=== PATIENT | female | born 1940 | race Caucasian/White ===

== ENCOUNTER 2020-05-08 13:14 | Outpatient (REF) | payer MEDICARE, SELFPAY ==
--- NOTE | 2020-05-08 13:20 | MM_ITS ---
EXAMINATION: MM SCREENING DIGITAL BREAST TOMOSYNTHESIS, BILATERAL CLINICAL INFORMATION: Screening. Asymptomatic. The lifetime risk of breast cancer based on the Tyrer-Cuzick Model is 1%. COMPARISON: Mammography: 11/23/2018, 10/03/2017, 08/13/2016 TECHNIQUE: Digital breast tomosynthesis is performed in both the craniocaudal and mediolateral oblique views along with computer-aided detection (CAD). Synthesized 2D images are generated from the tomosynthesis. Additional left CC and left MLO views are provided. FINDINGS: The breasts are heterogeneously dense, which may obscure small masses (ACR BI-RADS breast composition Category c). There are scattered bilateral nodular parenchymal asymmetries similar to prior studies. There are shifting fibroglandular densities from year to year consistent with variation in positioning and compression. No significant changes. No interval significant mass or architectural abnormality or abnormal calcifications. Again, there are vascular calcifications as well as benign bulky calcification upper outer right breast. MM/MM tomosynthesis screening BI IMPRESSION: No significant changes from prior studies. ASSESSMENT: BI-RADS 2: Benign RECOMMENDATION: Routine annual mammography screening. This patient's information was entered into a reminder system with a target due date for their next mammogram.
== END 2020-05-08 13:15 | disposition home or self-care (01) ==
LOC: HO.MAMMO 13:14
PROVIDERS: Visit Provider Internal Medicine
DX: Z12.31 Encounter for screening mammogram for malignant neoplasm of breast (principal)
CPT/HCPCS: 77063; 77067

== ENCOUNTER 2020-05-15 07:22 | Outpatient (REF) | payer MEDICARE, SELFPAY ==
[2020-05-15 11:16] LABS: MANUAL DIFF FLAG NO
[2020-05-15 11:23] LABS: Basophils Percent Auto 0.3 % (0-2); Eosinophils Absolute Auto 0.4 X10*3/uL (0.0-0.4); Eosinophils Percent Auto 3.3 % (0-4); Hematocrit 45.5 % (37-47); Hemoglobin 14.6 g/dl (12.0-16.0); Imm Gran Abs Auto 0.05 X10*3/uL (0.00-0.03); Imm Gran Pct Auto 0.4 % (0.0-0.4); Lymphocytes Absolute Auto 3.8 X10*3/uL (1.2-4.9); Lymphocytes Percent Auto 33.9 % (20-40); Mean Corpuscular HGB Conc 32.1 g/dl (31.0-35.0); Mean Corpuscular Hemoglobin 28.9 pg (27.0-33.0); Mean Corpuscular Volume 89.9 fL (80-98); Mean Platelet Volume 9.5 fL (9.4-12.3); Monocytes Absolute Auto 0.8 X10*3/uL (0.1-1.2); Monocytes Percent Auto 6.8 % (2-11); Neutrophils Absolute Auto 6.2 X10*3/uL (2.0-8.3); Neutrophils Percent Auto 55.3 % (45-73); Platelet Count 273 X10*3/uL (160-400); Red Blood Count 5.06 X10*6/uL (4.20-5.50); Red Cell Distribution Width 13.7 % (11.0-16.0); White Blood Count 11.3 X10*3/uL (4.8-10.8)
[2020-05-15 11:55] LABS: Alanine Aminotransferase 32 U/L (0-31); Alkaline Phosphatase 81 U/L (39-117); Anion Gap 18 (12-20); Aspartate Amino Transferase 26 U/L (5-31); Bilirubin Total 1.7 mg/dL (0.0-1.0); Blood Urea Nitrogen 14 mg/dL (9-16); Calcium 8.6 mg/dL (8.4-10.2); Carbon Dioxide 27 mmol/L (22-29); Chloride 103 mmol/L (96-108); Cholesterol 151 mg/dL; Estimated Glomerular Filt Rate > 60; Glucose Fasting 117 mg/dL (60-99); HDL Cholesterol 38 mg/dL; LDL Cholesterol Calculated 74 mg/dl; Potassium 3.7 mmol/l (3.3-5.1); Sodium 144 mmol/L (135-145); Total Protein 6.6 g/dL (6.5-8.0); Triglycerides 196 mg/dL
[2020-05-15 12:17] LABS: T4 Thyroxine 7.8 ug/dL (4.5-12.0); Thyroid Stimulating Hormone 2.68 uIU/mL (0.32-4.0); Vitamin D 25-OH Total 32.1 ng/mL (>30)
[2020-05-15 12:30] LABS: Creatinine Urine 219.96 mg/dL; Microalbum/Creatinine Ratio Ur 27.2 ug/mg cr
[2020-05-15 12:58] LABS: Folate > 20.0 ng/mL (> or = 4.0); Vitamin B12 618 pg/mL (200-900)
== END 2020-05-15 07:23 | disposition home or self-care (01) ==
LOC: HO.HMGCLDS 07:22
PROVIDERS: PCP Internal Medicine; Visit Provider Internal Medicine
DX: E11.65 Type 2 diabetes mellitus with hyperglycemia (principal); I10 Essential (primary) hypertension; E78.00 Pure hypercholesterolemia, unspecified; E66.01 Morbid (severe) obesity due to excess calories
CPT/HCPCS: 36415; 80053; 80061; 82043; 82306; 82607; 82746; 84436; 84443; 85025

== ENCOUNTER 2021-05-27 06:27 | Outpatient (REF) | payer MEDICARE, SELFPAY ==
[2021-05-27 11:14] LABS: MANUAL DIFF FLAG NO
[2021-05-27 11:28] LABS: Basophils Percent Auto 0.3 % (0-2); Eosinophils Absolute Auto 0.4 X10*3/uL (0.0-0.4); Eosinophils Percent Auto 3.4 % (0-4); Hematocrit 44.2 % (37.0-47.0); Hemoglobin 14.3 g/dl (12.0-16.0); Imm Gran Abs Auto 0.04 X10*3/uL (0.00-0.03); Imm Gran Pct Auto 0.3 % (0.0-0.4); Lymphocytes Absolute Auto 2.8 X10*3/uL (1.2-4.9); Lymphocytes Percent Auto 24.2 % (20-40); Mean Corpuscular HGB Conc 32.4 g/dl (31.0-35.0); Mean Corpuscular Hemoglobin 29.3 pg (27.0-33.0); Mean Corpuscular Volume 90.6 fL (80.0-98.0); Mean Platelet Volume 9.7 fL (9.4-12.3); Monocytes Absolute Auto 0.8 X10*3/uL (0.1-1.2); Monocytes Percent Auto 6.7 % (2-11); Neutrophils Absolute Auto 7.6 x10*3/uL (2.0-8.3); Neutrophils Percent Auto 65.1 % (45-73); Platelet Count 260 X10*3/uL (160-400); Red Blood Count 4.88 X10*6/uL (4.20-5.50); Red Cell Distribution Width 14.2 % (11.0-16.0); White Blood Count 11.6 X10*3/uL (4.8-10.8)
[2021-05-27 12:32] LABS: Creatinine Urine 227.06 mg/dL; Microalbum/Creatinine Ratio Ur 9.2 ug/mg cr
[2021-05-27 12:53] LABS: Free T4 (Free Thyroxine) 0.85 ng/dL (0.71-1.85); Thyroid Stimulating Hormone 2.85 uIU/mL (0.32-4.0); Vitamin D 25-OH Total 31.8 ng/mL (>30)
[2021-05-27 13:03] LABS: Alanine Aminotransferase 35 U/L (0-31); Alkaline Phosphatase 75 U/L (39-117); Anion Gap 13 (12-20); Aspartate Amino Transferase 31 U/L (5-31); Bilirubin Total 2.1 mg/dL (0.0-1.0); Carbon Dioxide 29 mmol/L (22-29); Chloride 104 mmol/L (96-108); Cholesterol 149 mg/dL; Estimated Glomerular Filt Rate > 60; Glucose Random 144 mg/dL (60-115); HDL Cholesterol 34 mg/dL; LDL Cholesterol Calculated 88 mg/dl; Potassium 4.2 mmol/L (3.3-5.1); Sodium 142 mmol/L (135-145); Total Protein 6.8 g/dL (6.5-8.0); Triglycerides 139 mg/dL
[2021-05-27 15:32] LABS: Blood Urea Nitrogen 21 mg/dL (9-16); Calcium 9.6 mg/dL (8.4-10.2)
[2021-05-27 15:36] LABS: Estimated Average Glucose 154 mg/dL
[2021-05-27 23:11] LABS: Folate 18.6 ng/mL (> or = 4.0); Vitamin B12 623 pg/mL (200-900)
== END 2021-05-27 06:28 | disposition home or self-care (01) ==
LOC: HO.HMGCLDS 06:27
PROVIDERS: Visit Provider Internal Medicine
DX: E11.65 Type 2 diabetes mellitus with hyperglycemia (principal); E78.00 Pure hypercholesterolemia, unspecified; I10 Essential (primary) hypertension
CPT/HCPCS: 36415; 80053; 80061; 82043; 82306; 82607; 82746; 83036; 84439; 84443; 85025

== ENCOUNTER 2021-12-28 07:06 | Outpatient (REF) | payer MEDICARE, SELFPAY ==
[2021-12-28 11:56] LABS: Alanine Aminotransferase 33 U/L (0-31); Albumin Level 4.1 g/dL (3.5-5.0); Alkaline Phosphatase 67 U/L (39-117); Anion Gap 16 (12-20); Aspartate Amino Transferase 23 U/L (5-31); Bilirubin Total 1.7 mg/dL (0.0-1.0); Blood Urea Nitrogen 18 mg/dL (9-16); Carbon Dioxide 28 mmol/L (22-29); Chloride 104 mmol/L (96-108); Cholesterol 151 mg/dL; Estimated Glomerular Filt Rate > 60; Glucose Random 135 mg/dL (60-115); HDL Cholesterol 40 mg/dL; LDL Cholesterol Calculated 76 mg/dl; Potassium 3.8 mmol/L (3.3-5.1); Sodium 144 mmol/L (135-145); Total Protein 6.7 g/dL (6.5-8.0); Triglycerides 177 mg/dL
[2021-12-28 11:59] LABS: Estimated Average Glucose 148 mg/dL; Hemoglobin A1c % 6.8 %
== END 2021-12-28 07:07 | disposition home or self-care (01) ==
LOC: HO.HMGCLDS 07:06
PROVIDERS: PCP Internal Medicine; Visit Provider Internal Medicine
DX: E78.00 Pure hypercholesterolemia, unspecified (principal)
CPT/HCPCS: 36415; 80053; 80061; 83036

== ENCOUNTER 2022-06-28 07:19 | Outpatient (REF) | payer MEDICARE, SELFPAY ==
[2022-06-28 11:44] LABS: MANUAL DIFF FLAG NO
[2022-06-28 11:47] LABS: Basophils Percent Auto 0.3 % (0-2); Eosinophils Absolute Auto 0.3 X10*3/uL (0.0-0.4); Eosinophils Percent Auto 2.5 % (0-4); Hematocrit 44.9 % (37.0-47.0); Hemoglobin 14.5 g/dl (12.0-16.0); Imm Gran Abs Auto 0.03 X10*3/uL (0.00-0.03); Imm Gran Pct Auto 0.3 % (0.0-0.4); Lymphocytes Percent Auto 38.6 % (20-40); Mean Corpuscular HGB Conc 32.3 g/dl (31.0-35.0); Mean Corpuscular Volume 89.8 fL (80.0-98.0); Mean Platelet Volume 9.7 fL (9.4-12.3); Monocytes Absolute Auto 0.7 X10*3/uL (0.1-1.2); Monocytes Percent Auto 6.5 % (2-11); Neutrophils Absolute Auto 5.4 x10*3/uL (2.0-8.3); Neutrophils Percent Auto 51.8 % (45-73); Platelet Count 280 X10*3/uL (160-400); Red Cell Distribution Width 14.2 % (11.0-16.0); White Blood Count 10.3 X10*3/uL (4.8-10.8)
[2022-06-28 12:40] LABS: Alanine Aminotransferase 24 U/L (0-31); Alkaline Phosphatase 62 U/L (39-117); Anion Gap 10 (12-20); Aspartate Amino Transferase 18 U/L (5-31); Bilirubin Total 2.2 mg/dL (0.0-1.0); Blood Urea Nitrogen 20 mg/dL (9-16); Calcium 8.8 mg/dL (8.4-10.2); Carbon Dioxide 33 mmol/L (22-29); Chloride 106 mmol/L (96-108); Cholesterol 153 mg/dL; Estimated Glomerular Filt Rate > 60; Glucose Random 140 mg/dL (60-115); HDL Cholesterol 38 mg/dL; LDL Cholesterol Calculated 75 mg/dl; Potassium 3.8 mmol/L (3.3-5.1); Sodium 145 mmol/L (135-145); Total Protein 6.4 g/dL (6.5-8.0); Triglycerides 201 mg/dL
[2022-06-28 12:50] LABS: Folate 15.7 ng/mL (> or = 4.0); Free T4 (Free Thyroxine) 0.88 ng/dL (0.71-1.85); Thyroid Stimulating Hormone 3.92 uIU/mL (0.32-4.0); Vitamin B12 585 pg/mL (200-900); Vitamin D 25-OH Total 36.1 ng/mL (>30)
[2022-06-28 13:34] LABS: Creatinine Urine 226.51 mg/dL; Microalbum/Creatinine Ratio Ur 22.9 ug/mg cr
== END 2022-06-28 07:20 | disposition home or self-care (01) ==
LOC: HO.HMGCLDS 07:19
PROVIDERS: PCP Internal Medicine; Visit Provider Internal Medicine
DX: E11.65 Type 2 diabetes mellitus with hyperglycemia (principal); I10 Essential (primary) hypertension; E78.00 Pure hypercholesterolemia, unspecified; E55.9 Vitamin D deficiency, unspecified
CPT/HCPCS: 36415; 80053; 80061; 82043; 82306; 82607; 82746; 84439; 84443; 85025

== ENCOUNTER 2023-02-09 09:25 | Outpatient (AMB) | payer MEDICARE, SELFPAY ==
--- NOTE | 2023-02-09 09:37 | A.OFFPC_ITS ---
Vital Signs 02/09/23 09:38 Height 5 ft Weight 209 lb BMI 40.8 BP 142/68 H Blood Pressure Location Lt brachial Position Sitting Pulse 67 Pulse Source Pulse Oximeter Pulse Oximetry (%) 97 Oxygen Delivery Method Room Air Intake Visit Reasons: 6 month f/u Intake Note: Patient here for a 6 month follow up Adzing And Boring Machine Feeder Required: No Accompanied by: Self / Same As Patient Allergies morphine [MORPHINE] Allergy (Severe, Verified 02/09/23 09:40) ANAPHYLAXIS amlodipine [AMLODIPINE] Allergy (Unknown, Verified 02/09/23 09:40) DIZZINESS coconut [COCONUT] Allergy (Unknown, Verified 02/09/23 09:40) HIVES codeine [CODEINE] Allergy (Unknown, Verified 02/09/23 09:40) VOMITING gabapentin Allergy (Unknown, Verified 02/09/23 09:40) swelling lisinopril [LISINOPRIL] Allergy (Unknown, Verified 02/09/23 09:40) COUGH olmesartan [From BENICAR] Allergy (Unknown, Verified 02/09/23 09:40) CRAMPING IN ARMS/LEGS orange [ORANGE] Allergy (Unknown, Verified 02/09/23 09:40) HIVES penicillin V Allergy (Unknown, Verified 02/09/23 09:40) hives Penicillins [PENICILLINS] Allergy (Unknown, Verified 02/09/23 09:40) HIVES hydralazine Adverse Reaction (Intermediate, Unverified 02/09/23 10:12) Palpitations Medication List - Last Reconciled 02/09/23 by Audrey Charles MD calcium carbonate-vitamin D3 600 mg-5 mcg (200 unit) (Calcium 600 + D(3)) 1 tab PO DAILY [cane As directed] cholecalciferol (vitamin D3) 25 mcg PO DAILY hydrochlorothiazide 25 mg PO DAILY 90 days losartan 100 mg PO DAILY metoprolol succinate ER 200 mg PO DAILY 90 days multivitamin 1 tab PO DAILY potassium chloride ER (Klor-Con M) 20 mEq PO DAILY rosuvastatin 10 mg PO DAILY 90 days Tobacco use date assessed: 02/09/23 Fall risk assessment: No Falls in past year Last assessed Fall Risk: 02/09/23 Dental Screening Dental Screen Date: 02/09/23 Did you have a dental visit in the last 12 months?: No Did you have a dental problem in the last 6 months where you did not have access to dental care?: No Was dental information given to patient?: Yes HPI 6 month f/u HPI Details 82-year-old morbidly . obese female wit h controlled diabetes mellitus hypercholesterolemia hypertension last seen in July 2022 foreign and will well visit. Patient is here for follow-up. Patient feels that hydralazince causes palpitions , hand numbness and itch and wants it off-. Patient decline nephrology follow up and wants just off hydralazine [facility] Medical History (Updated 08/10/22 @ 10:44 by Audrey Charles MD) Lumbar degenerative disc disease Renal cell cancer Type 2 diabetes mellitus with hyperglycemia Anxiety and depression Vitamin D deficiency Meralgia paresthetica Obesity (BMI 30-39.9) Hypercholesterolemia Hypertension Surgical History History of kidney surgery History of arthroscopy of left knee History of total abdominal hysterectomy and bilateral salpingo-oophorectomy History of tonsillectomy Family History Father CVD (cardiovascular disease) Mother CVD (cardiovascular disease) Hypertension Brother Prostate cancer Daughter No problems noted. Son No problems noted. Son No problems noted. Son No problems noted. Social History Housing: Condominium Alcohol intake: never Patient Tobacco Use Status: Former Tobacco user Tobacco use type: Cigarette Years Smoked: stopped 36 year old e-Cigarette/Vaping Use: Never Used Second Hand Smoke Exposure: No service: No Current occupational status: retired Cognitive needs: No Hearing needs: No Vision needs: Yes Questionnaire Thrive Questionnaire Date Thrive assessed: 08/10/22 DESTINEE-7 AMB Questionnaire DESTINEE-7 Date DESTINEE - 7 assessed: 08/10/22 Source: Developed by Drs. Julian Oneil, Connie Rodarte, Claude Araiza and colleagues, with an educational perico from [employer]. Physical exam (Primary Care) Vital Signs: Last Vital Signs Pulse 67 02/09/23 09:38 BP 142/68 H 02/09/23 09:38 Pulse Ox 97 02/09/23 09:38 Oxygen Delivery Method Room Air 02/09/23 09:38 BMI result Body Mass Index 40.8 Tobacco/Smoking Status: Tobacco use Status Tobacco use date assessed 02/09/23 02/09/23 09:45 Patient Tobacco Use Status Former Tobacco user 02/09/23 09:45 Tobacco use type Cigarette 02/09/23 09:45 e-Cigarette/Vaping Use Never Used 02/09/23 09:45 Thrive Assessment: Date of Thrive Assessment Date Thrive assessed 08/10/22 02/09/23 09:45 Const General: alert; No acute distress Eyes Conjunctivae: conjunctivae normal Resp Auscultation: clear to auscultation bilaterally Cardio Rate: regular rate Rhythm: regular rhythm GI Inspection: Yes normal to inspection Extrem General: Yes normal to inspection and No edema Office Procedures Flu Questionnaire Does the patient have a severe egg allergy?: No Has the patient ever had any past reaction to a flu shot?: Yes Immunizations flu vacc [id number] 6mos up(PF) 60 mcg(15 mcgx4)/0.5 mL IM syringe Performing Provider: Audrey Charles MD [facility] Documented (not given) by: Fatuma Penaloza Jair on 02/09/23 09:46 Reason Not Given: Patient Refused Assessment and Plan Assessment & Plan (1) Type 2 diabetes mellitus with hyperglycemia: Comment: Dr. Duckworth Code(s): E11.65 - Type 2 diabetes mellitus with hyperglycemia Qualifiers: Diabetes mellitus supervisor intermediates insulin use: without supervisor intermediates use Qualified Code(s): E11.65 - Type 2 diabetes mellitus with hyperglycemia Plan: Decrease the amount of carbohydrate intake, pasta, bread, rice and potatoes are all sugar and that is aside from all the sweet stuff, remember that fruits are good but they are Sweet also. Hemoglobin A1c goal of less than 7.0 patient is on diet control (2) Obesity (BMI 30-39.9): Code(s): E66.9 - Obesity, unspecified Plan: Diet and exercise (3) Hypertension: Code(s): I10 - Essential (primary) hypertension Qualifiers: Hypertension type: essential hypertension Qualified Code(s): I10 - Essential (primary) hypertension Plan: Continue with blood pressure medication. Decrease salt intake and exercise patient is taking metoprolol to 100 mg once a day hydrochlorothiazide 25 mg once a day hydralazine 10 mg 3 times a day and losartan 100 mg once a day (4) Hypercholesterolemia: Code(s): E78.00 - Pure hypercholesterolemia, unspecified Plan: Avoid fried foods, chicken skin, eggs, butter margarine, pastries and meat. Be it pork or beef they have a lot of cholesterol LDL goal of less than 100 and triglyceride of less than 150 patient is on rosuvastatin 10. June 2022 last blood work Orders: Orders Complete Blood Count Auto Diff 5 Months E11. - Type 2 diabetes mellitus with hyperglycemia Thyroid Stimulating Hormone 5 Months E11. - Type 2 diabetes mellitus with hyperglycemia Vitamin B12 and Folate 5 Months E11. - Type 2 diabetes mellitus with hyperglycemia Lipid Panel 5 Months E11. - Type 2 diabetes mellitus with hyperglycemia, E78.00 - Pure hypercholesterolemia, unspecified UA w Microscopic 5 Months . - Type 2 diabetes mellitus with hyperglycemia Influenza [id number] Immunization Today Z23 - Encounter for immunization Comprehensive Met. Panel 5 Months . - Type 2 diabetes mellitus with hyperglycemia Free T4 (Free Thyroxine) 5 Months . - Type 2 diabetes mellitus with hyperglycemia Microalbumin, Random (w Creat) 5 Months E11. - Type 2 diabetes mellitus with hyperglycemia Creatinine Urine 5 Months E11. - Type 2 diabetes mellitus with hyperglycemia Medications: Discontinued hydralazine Discontinued Reason: Doctor's Order 10 mg PO TID 90 days 270 tabs 3RF I10 - Essential (primary) hypertension Coding Level of Care Code Est Pt Level 4 (26163) Diagnoses Type 2 diabetes mellitus with hyperglycemia, without long-term current use of insulin Diabetes mellitus supervisor intermediates insulin use: without supervisor intermediates use Obesity (BMI 30-39.9) E66.9 Essential hypertension I10 Hypertension type: essential hypertension Hypercholesterolemia E78.00
[2023-02-09 09:38] VITALS: BP 142/68; PULSE 67; O2SAT 97; BMI 40.8
== END 2023-02-09 10:28 | disposition home or self-care (01) ==
PROVIDERS: Visit Provider Internal Medicine
DX: E11.65 Type 2 diabetes mellitus with hyperglycemia (principal); Z68.41 Body mass index [BMI] 40.0-44.9, adult; E66.9 Obesity, unspecified; I10 Essential (primary) hypertension; E78.00 Pure hypercholesterolemia, unspecified
CPT/HCPCS: 99214

== ENCOUNTER 2023-07-25 06:55 | Outpatient (REF) | payer MEDICARE, SELFPAY ==
[2023-07-25 10:15] LABS: MANUAL DIFF FLAG NO
[2023-07-25 10:17] LABS: Appearance Urine Turbid; Color Urine Yellow; Glucose Urine UA Negative (Negative); Leukocyte Esterase Urine Large (3+) (Negative); Nitrite Urine Negative (Negative); PH 5.5 (5.0-9.0); UMIC TRIGGER UA YES; Urine Blood Small (1+) (Negative); Urine Ketones Negative (Negative); Urine Protein Trace mg/dL (Neg-Trace)
[2023-07-25 10:24] LABS: Basophils Percent Auto 0.3 % (0-2); Eosinophils Absolute Auto 0.2 X10*3/uL (0.0-0.4); Eosinophils Percent Auto 2.1 % (0-4); Hematocrit 44.7 % (37.0-47.0); Hemoglobin 14.9 g/dl (12.0-16.0); Imm Gran Abs Auto 0.04 X10*3/uL (0.00-0.03); Imm Gran Pct Auto 0.4 % (0.0-0.4); Lymphocytes Absolute Auto 3.6 X10*3/uL (1.2-4.9); Lymphocytes Percent Auto 36.2 % (20-40); Mean Corpuscular HGB Conc 33.3 g/dl (31.0-35.0); Mean Corpuscular Hemoglobin 29.6 pg (27.0-33.0); Mean Corpuscular Volume 88.7 fL (80.0-98.0); Mean Platelet Volume 9.6 fL (9.4-12.3); Monocytes Absolute Auto 0.7 X10*3/uL (0.1-1.2); Monocytes Percent Auto 6.6 % (2-11); Neutrophils Absolute Auto 5.4 x10*3/uL (2.0-8.3); Neutrophils Percent Auto 54.4 % (45-73); Platelet Count 237 X10*3/uL (160-400); Red Blood Count 5.04 X10*6/uL (4.20-5.50); Red Cell Distribution Width 13.9 % (11.0-16.0); White Blood Count 9.9 X10*3/uL (4.8-10.8)
[2023-07-25 10:31] LABS: Bacteria Urine 4+ (None Seen); Hyaline Casts Urine 0-2 /LPF (0-2); Squamous Epithelial Cell Urine >20 /HPF (0-2); WBC Urine >50 /HPF (0-5)
[2023-07-25 11:06] LABS: Alanine Aminotransferase 18 U/L (0-31); Alkaline Phosphatase 57 U/L (39-117); Anion Gap 12 (12-20); Aspartate Amino Transferase 17 U/L (5-31); Bilirubin Total 1.7 mg/dL (0.0-1.0); Blood Urea Nitrogen 18 mg/dL (9-16); Carbon Dioxide 29 mmol/L (22-29); Chloride 106 mmol/L (96-108); Cholesterol 143 mg/dL (<200); Estimated Glomerular Filt Rate > 60; Glucose Random 134 mg/dL (60-115); HDL Cholesterol 41 mg/dL (>40); LDL Cholesterol Calculated 72 mg/dL (<100); Potassium 3.6 mmol/L (3.3-5.1); Sodium 143 mmol/L (135-145); Total Protein 6.9 g/dL (6.5-8.0); Triglycerides 150 mg/dL (<150)
[2023-07-25 11:30] LABS: Free T4 (Free Thyroxine) 0.92 ng/dL (0.71-1.85); Thyroid Stimulating Hormone 2.68 uIU/mL (0.32-4.0)
[2023-07-25 11:34] LABS: Creatinine Urine 156.23 mg/dL; Microalbum/Creatinine Ratio Ur 28.8 ug/mg cr (<30)
[2023-07-25 12:02] LABS: Folate 13.5 ng/mL (> or = 4.0); Vitamin B12 609 pg/mL (200-900)
== END 2023-07-25 06:56 | disposition home or self-care (01) ==
LOC: HO.HMGCLDS 06:55
PROVIDERS: PCP Internal Medicine; Visit Provider Internal Medicine
DX: E11.65 Type 2 diabetes mellitus with hyperglycemia (principal); E78.00 Pure hypercholesterolemia, unspecified
CPT/HCPCS: 36415; 80053; 80061; 81001; 82043; 82570; 82607; 82746; 84439; 84443; 85025

== ENCOUNTER 2023-08-10 08:19 | Outpatient (AMB) | payer MEDICARE, SELFPAY ==
[2023-08-10 08:30] VITALS: BP 158/82; PULSE 68; O2SAT 97; BMI 39.4
--- NOTE | 2023-08-10 08:30 | A.OFFPC_ITS ---
Vital Signs 08/10/23 08:30 Height 5 ft Weight 202 lb BMI 39.4 BP 158/82 H Blood Pressure Location Lt brachial Position Sitting Pulse 68 Pulse Source Pulse Oximeter Pulse Oximetry (%) 97 Oxygen Delivery Method Room Air Intake Visit Reasons: 6M Follow up Other Sports Official Required: No Allergies morphine [MORPHINE] Allergy (Severe, Verified 08/10/23 08:36) ANAPHYLAXIS amlodipine [AMLODIPINE] Allergy (Unknown, Verified 08/10/23 08:36) DIZZINESS coconut [COCONUT] Allergy (Unknown, Verified 08/10/23 08:36) HIVES codeine [CODEINE] Allergy (Unknown, Verified 08/10/23 08:36) VOMITING gabapentin Allergy (Unknown, Verified 08/10/23 08:36) swelling lisinopril [LISINOPRIL] Allergy (Unknown, Verified 08/10/23 08:36) COUGH olmesartan [From BENICAR] Allergy (Unknown, Verified 08/10/23 08:36) CRAMPING IN ARMS/LEGS orange [ORANGE] Allergy (Unknown, Verified 08/10/23 08:36) HIVES penicillin V Allergy (Unknown, Verified 08/10/23 08:36) hives Penicillins [PENICILLINS] Allergy (Unknown, Verified 08/10/23 08:36) HIVES hydralazine Adverse Reaction (Intermediate, Verified 08/10/23 08:36) Palpitations Tobacco use date assessed: 08/10/23 Fall risk assessment: No Falls in past year Last assessed Fall Risk: 08/10/23 Dental Screening Dental Screen Date: 08/10/23 Did you have a dental visit in the last 12 months?: No Did you have a dental problem in the last 6 months where you did not have access to dental care?: No HPI 6M Follow up HPI Details 83-year-old obese female with controlled diabetes mellitus hypertension hypercholesterolemia last seen in January 2023.. Son recently had cva in the last 4 months. and going back and forth in [place]- lives alone. but anyway- [facility] Medical History (Updated 08/10/22 @ 10:44 by Audrey Charles MD) Lumbar degenerative disc disease Renal cell cancer Type 2 diabetes mellitus with hyperglycemia Anxiety and depression Vitamin D deficiency Meralgia paresthetica Obesity (BMI 30-39.9) Hypercholesterolemia Hypertension Surgical History History of kidney surgery History of arthroscopy of left knee History of total abdominal hysterectomy and bilateral salpingo-oophorectomy History of tonsillectomy Family History Father CVD (cardiovascular disease) Mother CVD (cardiovascular disease) Hypertension Brother Prostate cancer Daughter No problems noted. Son No problems noted. Son No problems noted. Son No problems noted. [facility] History [facility] Alcohol intake: never Patient Tobacco Use Status: Former Tobacco user Tobacco use type: Cigarette Years Smoked: stopped 36 year old e-Cigarette/Vaping Use: Never Used Second Hand Smoke Exposure: No service: No Current occupational status: retired Cognitive needs: No Hearing needs: No Vision needs: Yes Questionnaire PHQ-9 Over the last 2 weeks, how often have you been bothered by any of the following problems? 1. Little interest or pleasure in doing things: several days 2. Feeling down, depressed, or hopeless: several days 3. Trouble falling or staying asleep, or sleeping too much: several days 4. Feeling tired or having little energy: several days 5. Poor appetite or overeating: not at all 6. Feeling bad about yourself - or that you are a failure or have let yourself or your family down: not at all 7. Trouble concentrating on things, such as reading the newspaper or watching television: not at all 8. Moving or speaking so slowly that other people could have noticed. Or the opposite - being so fidgety or restless that you have been moving around a lot more than usual: not at all 9. Thoughts that you would be better off or of hurting yourself in some way: not at all Total score: 4 Depression Screening Interpretation: Negative Depression Screening Done: Yes [id number] - PHQ-9 Billing: Yes Source: Developed by Drs. Julian Oneil, Connie Rodarte, Claude Araiza and colleagues, with an educational perico from [employer]. Thrive Questionnaire Date Thrive assessed: 08/10/23 I am a: Patient What is your living situation today?: I have a steady place to live Within the past 12 months, did the food you bought not last and you didn't have the money to get more?: Never true Within the past 12 months, did you worry whether your food would run out before you got money to buy more?: Never true Do you have trouble paying for medicines?: No Do you have trouble getting transportation to medical appointments?: No Do you have trouble paying your heating and electricity bill?: No Do you have trouble taking care of your child, family member or friend?: No Do you have trouble with day-to-day activities such as bathing, preparing meals, shopping, managing finances, etc.?: No Are you currently unemployed and looking for a job?: No Are you interested in more education?: No Please select the resources that you would like help with: None Currently or been in a relationship where the following occur: no concerns reported THRIVE Score: 0 AUDIT C Alcohol Use Questionnaire (AUDIT-C) 1. How often do you have a drink containing alcohol?: Monthly or less 2. How many drinks containing alcohol do you have on a typical day when you are drinking?: 1 or 2 3. How often do you have six or more drinks on one occasion?: Never Total Score: 1 DESTINEE-7 AMB Questionnaire DESTINEE-7 Date DESTINEE - 7 assessed: 08/10/23 Feeling nervous, anxious, or on edge: 1 = Several days Not being able to stop or control worryin = Several days Worrying too much about different things: 1 = Several days Trouble relaxin = Several days Being so restless that it is hard to sit still: 1 = Several days Becoming easily annoyed or irritable: 0 = Not at all Feeling afraid as if something awful might happen: 0 = Not at all Total DESTINEE-7 score (0-4 normal; 5-9 mild; 10-14 moderate; 15-21 severe): 5 Source: Developed by Drs. Julian Oneil, Connie Rodarte, Claude Araiza and colleagues, with an educational perico from [employer]. DESTINEE-7 Assessment Billing DESTINEE-7 Assessment Tool: DESTINEE-7 Assessment 31181 Physical exam (Primary Care) Vital Signs: Last Vital Signs Pulse 68 08/10/23 08:30 BP 158/82 H 08/10/23 08:30 Pulse Ox 97 08/10/23 08:30 Oxygen Delivery Method Room Air 08/10/23 08:30 BMI result Body Mass Index 39.4 Tobacco/Smoking Status: Tobacco use Status Tobacco use date assessed 02/09/23 08/10/23 08:31 Patient Tobacco Use Status Former Tobacco user 08/10/23 08:31 Tobacco use type Cigarette 08/10/23 08:31 e-Cigarette/Vaping Use Never Used 08/10/23 08:31 Depression Screening Interpretation: Negative Thrive Assessment: Date of Thrive Assessment Date Thrive assessed 08/10/23 08/10/23 08:31 Currently or been in a relationship where the following occur: no concerns reported Const General: alert; No acute distress Eyes Conjunctivae: conjunctivae normal Resp Auscultation: clear to auscultation bilaterally Cardio Rate: regular rate Rhythm: regular rhythm GI Inspection: Yes normal to inspection Extrem General: Yes normal to inspection and No edema Results AMB Hemoglobin A1c AMB Hemoglobin A1c 6.4 % Last Edit by SHERMAN Waller on 08/10/23 08:45 Assessment and Plan Assessment & Plan (1) Type 2 diabetes mellitus with hyperglycemia: Comment: Dr. Duckworth Code(s): E11.65 - Type 2 diabetes mellitus with hyperglycemia Qualifiers: Diabetes mellitus senior care insulin use: without senior care use Qualified Code(s): E11.65 - Type 2 diabetes mellitus with hyperglycemia Plan: Decrease the amount of carbohydrate intake, pasta, bread, rice and potatoes are all sugar and that is aside from all the sweet stuff, remember that fruits are good but they are Sweet also. Hemoglobin A1c goal of less than 7.0. Patient on diet control (2) Obesity (BMI 30-39.9): Code(s): E66.9 - Obesity, unspecified Plan: Diet and exercise noted weight loss! (3) Hypertension: Code(s): I10 - Essential (primary) hypertension Qualifiers: Hypertension type: essential hypertension Qualified Code(s): I10 - Essential (primary) hypertension Plan: Continue with blood pressure medication. Decrease salt intake and exercise presently on metoprolol 200 mg once a day losartan 100 mg once a day and hydrochlorothiazide 25 mg once a day (4) Hypercholesterolemia: Code(s): E78.00 - Pure hypercholesterolemia, unspecified Plan: Avoid fried foods, chicken skin, eggs, butter margarine, pastries and meat. Be it pork or beef they have a lot of cholesterol LDL goal of less than 100 and triglyceride of less than 150. Patient on rosuvastatin 10 mg once a day Orders: Orders US renal BI Today I10 - Essential (primary) hypertension AMB Hemoglobin A1c Today E11.65 - Type 2 diabetes mellitus with hyperglycemia US renal doppler Today I10 - Essential (primary) hypertension Medications: New nifedipine ER 30 mg PO DAILY 30 tabs 0RF I10 - Essential (primary) hypertension Coding Level of Care Code Est Pt Level 4 (88148) Diagnoses Type 2 diabetes mellitus with hyperglycemia, without long-term current use of insulin E11.65 Diabetes mellitus senior care insulin use: without senior care use Obesity (BMI 30-39.9) E66.9 Essential hypertension I10 Hypertension type: essential hypertension Hypercholesterolemia E78.00 Additional Codes DESTINEE-7 Assessment Billing - DESTINEE-7 Assessment Tool: DESTINEE-7 Assessment [id number] ([id number])
== END 2023-08-10 09:01 | disposition home or self-care (01) ==
PROVIDERS: PCP Internal Medicine; Visit Provider Internal Medicine
DX: E11.65 Type 2 diabetes mellitus with hyperglycemia (principal); I10 Essential (primary) hypertension; E78.00 Pure hypercholesterolemia, unspecified
CPT/HCPCS: 83036; 99214

== ENCOUNTER 2023-08-23 08:07 | Outpatient (REF) | payer MEDICARE, SELFPAY ==
--- NOTE | ~2023-08-23 | US_ITS ---
EXAMINATION: ULTRASOUND RENAL WITH DOPPLER CLINICAL INFORMATION: Hypertension. COMPARISON: Renal ultrasound 02/03/2016. TECHNIQUE: Real-time grayscale, color Doppler, and duplex Doppler evaluation of the kidneys and renal vasculature was performed. FINDINGS: RENAL MEASUREMENTS: Right: 9.5 x 4.1 x 5.7 cm (Sag x AP x TV) Left: 9.3 x 5.4 x 5.1 cm (Sag x AP x TV) The renal parenchyma appears normal. No hydronephrosis or nephrolithiasis. DOPPLER INTERROGATION: AORTA: Mid aorta: 116 cm/sec RIGHT MAIN RENAL ARTERY: Proximal: 112 cm/sec Mid: 116 cm/sec Distal: 95 cm/sec LEFT MAIN RENAL ARTERY: Proximal: 139 cm/sec Mid: 124 cm/sec Distal: 103 cm/sec RENAL-AORTIC RATIO (RAR): Right: Not calculated due to mid aortic velocity outside of range 40-100 cm/s making RAR inaccurate. Left: Not calculated due to mid aortic velocity outside of range 40-100 cm/s making RAR inaccurate. SEGMENTAL RESISTIVE INDICES: Right: 0.80-0.84 Left: 0.79-0.82 RENAL VEINS: Right: Patent with normal waveform. Left: Patent with normal waveform. US/US renal doppler IMPRESSION: No evidence of hemodynamically significant renal artery stenosis. Elevated resistive indices bilaterally suggesting chronic medical renal disease. No nephrolithiasis or hydronephrosis.
--- NOTE | ~2023-08-23 | US_ITS ---
EXAMINATION: ULTRASOUND RENAL WITH DOPPLER CLINICAL INFORMATION: Hypertension. COMPARISON: Renal ultrasound 02/03/2016. TECHNIQUE: Real-time grayscale, color Doppler, and duplex Doppler evaluation of the kidneys and renal vasculature was performed. FINDINGS: RENAL MEASUREMENTS: Right: 9.5 x 4.1 x 5.7 cm (Sag x AP x TV) Left: 9.3 x 5.4 x 5.1 cm (Sag x AP x TV) The renal parenchyma appears normal. No hydronephrosis or nephrolithiasis. DOPPLER INTERROGATION: AORTA: Mid aorta: 116 cm/sec RIGHT MAIN RENAL ARTERY: Proximal: 112 cm/sec Mid: 116 cm/sec Distal: 95 cm/sec LEFT MAIN RENAL ARTERY: Proximal: 139 cm/sec Mid: 124 cm/sec Distal: 103 cm/sec RENAL-AORTIC RATIO (RAR): Right: Not calculated due to mid aortic velocity outside of range 40-100 cm/s making RAR inaccurate. Left: Not calculated due to mid aortic velocity outside of range 40-100 cm/s making RAR inaccurate. SEGMENTAL RESISTIVE INDICES: Right: 0.80-0.84 Left: 0.79-0.82 RENAL VEINS: Right: Patent with normal waveform. Left: Patent with normal waveform. US/US renal BI IMPRESSION: No evidence of hemodynamically significant renal artery stenosis. Elevated resistive indices bilaterally suggesting chronic medical renal disease. No nephrolithiasis or hydronephrosis.
== END 2023-08-23 08:08 | disposition home or self-care (01) ==
LOC: HO.HMGCX 08:07
PROVIDERS: PCP Internal Medicine; Visit Provider Internal Medicine
DX: I10 Essential (primary) hypertension (principal)
CPT/HCPCS: 76775; 93975

== ENCOUNTER 2023-12-29 08:32 | Outpatient (AMB) | payer MEDICARE, SELFPAY ==
--- NOTE | 2023-12-29 08:52 | MHC.PC.OV ---
Vital Signs 12/29/23 08:53 Height 5 ft Weight 201 lb BMI 39.3 BP 144/72 H Blood Pressure Location Lt brachial Position Sitting Pulse 61 Pulse Source Pulse Oximeter Pulse Oximetry (%) 96 Oxygen Delivery Method Room Air Intake Visit Reasons: DM , HTN Allergies morphine [MORPHINE] Allergy (Severe, Verified 12/29/23 09:00) ANAPHYLAXIS amlodipine [AMLODIPINE] Allergy (Unknown, Verified 12/29/23 09:00) DIZZINESS coconut [COCONUT] Allergy (Unknown, Verified 12/29/23 09:00) HIVES codeine [CODEINE] Allergy (Unknown, Verified 12/29/23 09:00) VOMITING gabapentin Allergy (Unknown, Verified 12/29/23 09:00) swelling lisinopril [LISINOPRIL] Allergy (Unknown, Verified 12/29/23 09:00) COUGH olmesartan [From BENICAR] Allergy (Unknown, Verified 12/29/23 09:00) CRAMPING IN ARMS/LEGS orange [ORANGE] Allergy (Unknown, Verified 12/29/23 09:00) HIVES penicillin V Allergy (Unknown, Verified 12/29/23 09:00) hives Penicillins [PENICILLINS] Allergy (Unknown, Verified 12/29/23 09:00) HIVES nifedipine Adverse Reaction (Severe, Verified 12/29/23 09:00) Flush hydralazine Adverse Reaction (Intermediate, Verified 12/29/23 09:00) Palpitations Tobacco use date assessed: 08/10/23 Fall risk assessment: No Falls in past year Last assessed Fall Risk: 12/29/23 Dental Screening Dental Screen Date: 08/10/23 HPI DM , HTN HPI Details 83-year-old obese female with controlled diabetes mellitus hypertension hypercholesterolemia last seen in 08/06/2023. With the blood pressure elevated patient had an ultrasound of the kidneys in August showing no evidence of hemodynamically significant renal artery stenosis although elevated resistive indices bilaterally suggesting chronic medical renal disease no nephrolithiasis or hydronephrosis. PAtient states insurance wants a referral to an oral surgeon and need the 6 teeth needs to take out. took nifedipine and could not tolerate. [facility] Medical History (Updated 12/29/23 @ 09:17 by Audrey Charles MD) Colonoscopy refused Lumbar degenerative disc disease Renal cell cancer Type 2 diabetes mellitus with hyperglycemia Anxiety and depression Vitamin D deficiency Meralgia paresthetica Obesity (BMI 30-39.9) Hypercholesterolemia Hypertension Surgical History History of kidney surgery History of arthroscopy of left knee History of total abdominal hysterectomy and bilateral salpingo-oophorectomy History of tonsillectomy Family History Father CVD (cardiovascular disease) Mother CVD (cardiovascular disease) Hypertension Brother Prostate cancer Daughter No problems noted. Son No problems noted. Son No problems noted. Son No problems noted. Social History Housing: Condominium Alcohol intake: never Patient Tobacco Use Status: Former Tobacco user Tobacco use type: Cigarette Years Smoked: stopped 36 year old e-Cigarette/Vaping Use: Never Used Second Hand Smoke Exposure: No service: No Current occupational status: retired Cognitive needs: No Hearing needs: No Vision needs: Yes Questionnaire PHQ-9 Over the last 2 weeks, how often have you been bothered by any of the following problems? 1. Little interest or pleasure in doing things: several days 2. Feeling down, depressed, or hopeless: several days 3. Trouble falling or staying asleep, or sleeping too much: several days 4. Feeling tired or having little energy: several days 5. Poor appetite or overeating: not at all 6. Feeling bad about yourself - or that you are a failure or have let yourself or your family down: not at all 7. Trouble concentrating on things, such as reading the newspaper or watching television: not at all 8. Moving or speaking so slowly that other people could have noticed. Or the opposite - being so fidgety or restless that you have been moving around a lot more than usual: not at all 9. Thoughts that you would be better off or of hurting yourself in some way: not at all Total score: 4 Depression Screening Interpretation: Negative Depression Screening Done: Yes 59186 - PHQ-9 Billing: Yes Source: Developed by Drs. Julian Oneil, Connie Rodarte, Claude Araiza and colleagues, with an educational perico from [employer]. Thrive Questionnaire Date Thrive assessed: 08/10/23 AUDIT C Alcohol Use Questionnaire (AUDIT-C) 1. How often do you have a drink containing alcohol?: Monthly or less 2. How many drinks containing alcohol do you have on a typical day when you are drinking?: 1 or 2 3. How often do you have six or more drinks on one occasion?: Never Total Score: 1 DESTINEE-7 AMB Questionnaire DESTINEE-7 Date DESTINEE - 7 assessed: 08/10/23 Source: Developed by Drs. Julian Oneil, Connie Rodarte, Claude Araiza and colleagues, with an educational perico from [employer]. Physical exam (Primary Care) Vital Signs: Last Vital Signs Pulse 61 12/29/23 08:53 BP 144/72 H 12/29/23 08:53 Pulse Ox 96 12/29/23 08:53 Oxygen Delivery Method Room Air 12/29/23 08:53 BMI result Body Mass Index 39.3 Tobacco/Smoking Status: Tobacco use Status Tobacco use date assessed 08/10/23 12/29/23 08:54 Patient Tobacco Use Status Former Tobacco user 12/29/23 08:54 Tobacco use type Cigarette 12/29/23 08:54 e-Cigarette/Vaping Use Never Used 12/29/23 08:54 PHQ-9: PHQ-9 Score PHQ-9: Total score 4 12/29/23 08:54 Depression Screening Interpretation: Negative Thrive Assessment: Date of Thrive Assessment Date Thrive assessed 08/10/23 12/29/23 08:54 Const General: alert; No acute distress Eyes Conjunctivae: conjunctivae normal Resp Auscultation: clear to auscultation bilaterally Cardio Rate: regular rate Rhythm: regular rhythm GI Inspection: Yes normal to inspection Extrem General: Yes normal to inspection and No edema Results AMB Hemoglobin A1c AMB Hemoglobin A1c 6.5 % Last Edit by Renaet Leigh CMA on 12/29/23 09:08 Assessment and Plan Assessment & Plan (1) Type 2 diabetes mellitus with hyperglycemia: Comment: Dr. Duckworth Code(s): E11.65 - Type 2 diabetes mellitus with hyperglycemia Qualifiers: Diabetes mellitus medical terminologist insulin use: without medical terminologist use Qualified Code(s): E11.65 - Type 2 diabetes mellitus with hyperglycemia Plan: Decrease the amount of carbohydrate intake, pasta, bread, rice and potatoes are all sugar and that is aside from all the sweet stuff, remember that fruits are good but they are Sweet also. Hemoglobin A1c goal of less than 7.0. Presently on diet control (2) Obesity (BMI 30-39.9): Code(s): E66.9 - Obesity, unspecified Plan: Diet and exercise (3) Hypercholesterolemia: Code(s): E78.00 - Pure hypercholesterolemia, unspecified Plan: Avoid fried foods, chicken skin, eggs, butter margarine, pastries and meat. Be it pork or beef they have a lot of cholesterol July 2023 last blood work controlled LDL goal of less than 100 and triglyceride of less than 150. (4) Hypertension: Code(s): I10 - Essential (primary) hypertension Qualifiers: Hypertension type: essential hypertension Qualified Code(s): I10 - Essential (primary) hypertension Plan: Continue with blood pressure medication. Decrease salt intake and exercise presently on metoprolol 200 mg once a day, losartan 100 mg once a day hydrochlorothiazide 25 mg once a day. Is not able to take nifedipine hydralazine. (5) Dental caries: Code(s): K02.9 - Dental caries, unspecified Orders: Orders AMB Hemoglobin A1c Today Z13.9 - Encounter for screening, unspecified Referrals Oral Surgery Referal K02.9 - Dental caries, unspecified Coding Level of Care Code Est Pt Level 4 (60827) Diagnoses Type 2 diabetes mellitus with hyperglycemia, without long-term current use of insulin E11.65 Diabetes mellitus senior living insulin use: without medical terminologist use Obesity (BMI 30-39.9) E66.9 Hypercholesterolemia E78.00 Essential hypertension I10 Hypertension type: essential hypertension Dental caries K02.9
[2023-12-29 08:53] VITALS: BP 144/72; PULSE 61; O2SAT 96; BMI 39.3
== END 2023-12-29 09:31 | disposition home or self-care (01) ==
PROVIDERS: PCP Internal Medicine; Visit Provider Internal Medicine
DX: E11.65 Type 2 diabetes mellitus with hyperglycemia (principal); E78.00 Pure hypercholesterolemia, unspecified; I10 Essential (primary) hypertension; K02.9 Dental caries, unspecified
CPT/HCPCS: 83036; 99214

== ENCOUNTER 2024-06-28 10:49 | Outpatient (AMB) | payer MEDICARE, SELFPAY ==
[2024-06-28 11:11] VITALS: BP 152/88; PULSE 74; O2SAT 96; BMI 39.4
--- NOTE | 2024-06-28 11:11 | MHC.PC.OV ---
Vital Signs 06/28/24 11:11 Height 5 ft Weight 202 lb BMI 39.4 BP 152/88 H Blood Pressure Location Lt brachial Position Sitting Pulse 74 Pulse Source Pulse Oximeter Pulse Oximetry (%) 96 Oxygen Delivery Method Room Air Intake Visit Reasons: annual exam Allergies morphine [MORPHINE] Allergy (Severe, Verified 06/28/24 11:12) ANAPHYLAXIS amlodipine [AMLODIPINE] Allergy (Unknown, Verified 06/28/24 11:12) DIZZINESS coconut [COCONUT] Allergy (Unknown, Verified 06/28/24 11:12) HIVES codeine [CODEINE] Allergy (Unknown, Verified 06/28/24 11:12) VOMITING gabapentin Allergy (Unknown, Verified 06/28/24 11:12) swelling lisinopril [LISINOPRIL] Allergy (Unknown, Verified 06/28/24 11:12) COUGH olmesartan [From BENICAR] Allergy (Unknown, Verified 06/28/24 11:12) CRAMPING IN ARMS/LEGS orange [ORANGE] Allergy (Unknown, Verified 06/28/24 11:12) HIVES penicillin V Allergy (Unknown, Verified 06/28/24 11:12) hives Penicillins [PENICILLINS] Allergy (Unknown, Verified 06/28/24 11:12) HIVES nifedipine Adverse Reaction (Severe, Verified 06/28/24 11:12) Flush hydralazine Adverse Reaction (Intermediate, Verified 06/28/24 11:12) Palpitations Medication List - Last Reconciled 06/28/24 by Audrey Charles MD calcium carbonate-vitamin D3 600 mg-5 mcg (200 unit) (Calcium 600 + D(3)) 1 tab PO DAILY [cane As directed] cholecalciferol (vitamin D3) 25 mcg PO DAILY hydrochlorothiazide 25 mg PO DAILY 90 days losartan 100 mg PO DAILY metoprolol succinate ER 200 mg PO DAILY 90 days multivitamin 1 tab PO DAILY potassium chloride ER (Klor-Con M) 20 mEq PO DAILY rosuvastatin 10 mg PO DAILY 90 days Tobacco use date assessed: 06/28/24 Fall risk assessment: No Falls in past year Last assessed Fall Risk: 06/28/24 Dental Screening Dental Screen Date: 06/28/24 Did you have a dental visit in the last 12 months?: Yes Did you have a dental problem in the last 6 months where you did not have access to dental care?: No Was dental information given to patient?: Patient has dentist HPI annual exam HPI Details 84-year-old obese female with controlled diabetes mellitus hypertension hypercholesterolemia lumbar degenerative disc disease and generalized anxiety disorder coming in for physical exam. Patient has been very stressed out because of family. [facility] Medical History (Updated 06/28/24 @ 12:09 by Audrey Charles MD) Colonoscopy refused Lumbar degenerative disc disease Renal cell cancer Type 2 diabetes mellitus with hyperglycemia Anxiety and depression Vitamin D deficiency Meralgia paresthetica Obesity (BMI 30-39.9) Hypercholesterolemia Hypertension Surgical History History of kidney surgery History of arthroscopy of left knee History of total abdominal hysterectomy and bilateral salpingo-oophorectomy History of tonsillectomy Family History Father CVD (cardiovascular disease) Mother CVD (cardiovascular disease) Hypertension Brother Prostate cancer Daughter No problems noted. Son No problems noted. Son No problems noted. Son No problems noted. Social History Housing: Condominium Alcohol intake: never Patient Tobacco Use Status: Former Tobacco user Tobacco use type: Cigarette Years Smoked: stopped 36 year old e-Cigarette/Vaping Use: Never Used Second Hand Smoke Exposure: No service: No Current occupational status: retired Cognitive needs: No Hearing needs: No Vision needs: Yes Questionnaire PHQ-9 Over the last 2 weeks, how often have you been bothered by any of the following problems? 1. Little interest or pleasure in doing things: several days 2. Feeling down, depressed, or hopeless: several days 3. Trouble falling or staying asleep, or sleeping too much: several days 4. Feeling tired or having little energy: several days 5. Poor appetite or overeating: several days 6. Feeling bad about yourself - or that you are a failure or have let yourself or your family down: several days 7. Trouble concentrating on things, such as reading the newspaper or watching television: not at all 8. Moving or speaking so slowly that other people could have noticed. Or the opposite - being so fidgety or restless that you have been moving around a lot more than usual: not at all 9. Thoughts that you would be better off or of hurting yourself in some way: not at all Total score: 6 Depression Screening Interpretation: Positive Depression Screening Done: Yes Source: Developed by Drs. Julian Oneil, Connie Rodarte, Claude Araiza and colleagues, with an educational perico from [employer]. Thrive Questionnaire Date Thrive assessed: 06/28/24 I am a: Patient What is your living situation today?: I have a steady place to live Within the past 12 months, did the food you bought not last and you didn't have the money to get more?: Never true Within the past 12 months, did you worry whether your food would run out before you got money to buy more?: Never true Do you have trouble paying for medicines?: No Do you have trouble getting transportation to medical appointments?: No Do you have trouble paying your heating and electricity bill?: No Do you have trouble taking care of your child, family member or friend?: No Do you have trouble with day-to-day activities such as bathing, preparing meals, shopping, managing finances, etc.?: No Are you currently unemployed and looking for a job?: No Are you interested in more education?: No Currently or been in a relationship where the following occur: No concerns reported THRIVE Score: 0 AUDIT C Alcohol Use Questionnaire (AUDIT-C) 1. How often do you have a drink containing alcohol?: Monthly or less 2. How many drinks containing alcohol do you have on a typical day when you are drinking?: 1 or 2 3. How often do you have six or more drinks on one occasion?: Never Total Score: 1 DESTINEE-7 AMB Questionnaire DESTINEE-7 Date DESTINEE - 7 assessed: 06/28/24 Feeling nervous, anxious, or on edge: 1 = Several days Not being able to stop or control worryin = Several days Worrying too much about different things: 1 = Several days Trouble relaxin = Not at all Being so restless that it is hard to sit still: 0 = Not at all Becoming easily annoyed or irritable: 0 = Not at all Feeling afraid as if something awful might happen: 0 = Not at all Total DESTINEE-7 score (0-4 normal; 5-9 mild; 10-14 moderate; 15-21 severe): 3 Source: Developed by Drs. Julian Oneil, Connie Rodarte, Claude Araiza and colleagues, with an educational perico from [employer]. Review of Systems Const Denies poor appetite and Denies weakness Eyes Denies no additional complaints ENT Reports Normal hearing present, Denies dizziness, Denies nasal congestion, Denies tinnitus and Denies sore throat Card Denies chest pain, Denies syncope, Denies rapid heart rate and Denies dyspnea Resp Denies cough and Denies dyspnea GI Denies change in stool character, Reports constipation, Denies diarrhea, Denies nausea and Denies vomiting Denies urinary frequency, Denies difficulty voiding and Denies dysuria Neuro Reports Normal hearing present, Denies confusion, Denies dizziness, Denies syncope and Denies weakness Psych Denies confusion Physical exam (Primary Care) Vital Signs: Last Vital Signs Pulse 74 06/28/24 11:11 BP 152/88 H 06/28/24 11:11 Pulse Ox 96 06/28/24 11:11 Oxygen Delivery Method Room Air 06/28/24 11:11 BMI result Body Mass Index 39.4 Tobacco/Smoking Status: Tobacco use Status Tobacco use date assessed 06/28/24 06/28/24 11:13 Patient Tobacco Use Status Former Tobacco user 06/28/24 11:13 Tobacco use type Cigarette 06/28/24 11:13 e-Cigarette/Vaping Use Never Used 06/28/24 11:13 PHQ-9: PHQ-9 Score PHQ-9: Total score 6 06/28/24 11:42 Depression Screening Interpretation: Positive Thrive Assessment: Date of Thrive Assessment Date Thrive assessed 06/28/24 06/28/24 11:13 Currently or been in a relationship where the following occur: No concerns reported Const General: No confusion Orientation/consciousness: No confusion HENMT Head: Yes normocephalic Ears: external ears normal and TM's normal bilaterally Face and sinus: Yes normal facial exam Mouth: moist mucous membranes Throat: Yes tonsils normal Eyes Conjunctivae: conjunctivae normal Pupils: Equal, round and reactive pupils present and Pupil accommodation reflex normal Direct Ophthalmoscopy: normal light reflex Neck Neck: No lymphadenopathy Thyroid: Thyroid normal Chest Chest palpation & inspection: normal inspection of the chest Resp Effort & Inspection: normal respiratory effort and no audible wheezes Auscultation: clear to auscultation bilaterally, no crackles, no wheezes and lung sounds not diminished Cardio Rate: regular rate Rhythm: regular rhythm Peripheral pulses: radial pulses present and dorsalis pedis present GI Palpation (GI): no masses Auscultation: normal bowel sounds and normoactive bowel sounds Rectal Exam - Female: deferred Skin General skin exam: no rashes or lesions noted Rashes: no rashes Neuro General: No confusion Cranial nerves: Yes Equal, round and reactive pupils present and Yes Normal hearing present Cognition (Neuro): normal cognition Gait exam (Neuro): Normal gait present Motor exam (neuro): 5/5 motor strength present throughout Deep tendon reflexes (DTR's): Right brachioradialis reflex intensity grade: 2+, Left brachioradialis reflex intensity grade: 2+, Right patellar reflex intensity grade: 2+ and Left patellar reflex intensity grade: 2+ Extrem General: No edema Coding Level of Care Code Est Pt Prev Care >65y(05821) Diagnoses Annual physical exam Z00.00 Type 2 diabetes mellitus with hyperglycemia, without long-term current use of insulin E11.65 Diabetes mellitus terminal clerk insulin use: without terminal clerk use Obesity (BMI 30-39.9) E66.9 Hypercholesterolemia E78.00 Essential hypertension I10 Hypertension type: essential hypertension Generalized anxiety disorder F41.1 Assessment & Plan Assessment & Plan (1) Annual physical exam: Code(s): Z00.00 - Encounter for general adult medical examination without abnormal findings Category: Medical Plan: Patient is advised to eat healthy, keep well hydrated, keep active and have adequate sleep. (2) Type 2 diabetes mellitus with hyperglycemia: Comment: Dr. Duckworth Code(s): E11.65 - Type 2 diabetes mellitus with hyperglycemia Category: Medical Qualifiers: Diabetes mellitus terminal clerk insulin use: without terminal clerk use Qualified Code(s): E11.65 - Type 2 diabetes mellitus with hyperglycemia Plan: Decrease the amount of carbohydrate intake, pasta, bread, rice and potatoes are all sugar and that is aside from all the sweet stuff, remember that fruits are good but they are Sweet also. Hemoglobin A1c goal of less than 7.0 patient is on diet control (3) Obesity (BMI 30-39.9): Code(s): E66.9 - Obesity, unspecified Category: Medical Plan: diet and exercise (4) Hypercholesterolemia: Code(s): E78.00 - Pure hypercholesterolemia, unspecified Category: Medical Plan: Avoid fried foods, chicken skin, eggs, butter margarine, pastries and meat. Be it pork or beef they have a lot of cholesterol on rosuvastatin LDL goal of less than 100 and triglyceride of less than 150 will request for blood work (5) Hypertension: Code(s): I10 - Essential (primary) hypertension Category: Medical Qualifiers: Hypertension type: essential hypertension Qualified Code(s): I10 - Essential (primary) hypertension Plan: Continue with blood pressure medication. Decrease salt intake and exercise on losartan and metoprolol blood work requested. decline renal referral and additional med. (6) Generalized anxiety disorder: Code(s): F41.1 - Generalized anxiety disorder Category: Medical Plan: Patient is being referred for counseling and therapy. Orders: Orders Complete Blood Count Auto Diff Today E11.65 - Type 2 diabetes mellitus with hyperglycemia Thyroid Stimulating Hormone Today E11.65 - Type 2 diabetes mellitus with hyperglycemia Creatinine Urine Today E11.65 - Type 2 diabetes mellitus with hyperglycemia Vitamin B12 and Folate Today E11.65 - Type 2 diabetes mellitus with hyperglycemia Vitamin D 25-OH Total Today E11.65 - Type 2 diabetes mellitus with hyperglycemia Lipid Panel Today E11.65 - Type 2 diabetes mellitus with hyperglycemia, E78.00 - Pure hypercholesterolemia, unspecified Hemoglobin A1c Today E11.65 - Type 2 diabetes mellitus with hyperglycemia AMB Hemoglobin A1c Today Z13.9 - Encounter for screening, unspecified Comprehensive Met. Panel Today E11.65 - Type 2 diabetes mellitus with hyperglycemia Free T4 (Free Thyroxine) Today E11.65 - Type 2 diabetes mellitus with hyperglycemia Microalbumin, Random (w Creat) Today E11.65 - Type 2 diabetes mellitus with hyperglycemia Referrals Psychiatry Outpatient Consultation Service F41.1 - Generalized anxiety disorder
== END 2024-06-28 12:09 | disposition home or self-care (01) ==
LOC: HO.HMCH 10:49
PROVIDERS: PCP Internal Medicine; Visit Provider Internal Medicine
DX: Z00.00 Encounter for general adult medical examination without abnormal findings (principal); E11.65 Type 2 diabetes mellitus with hyperglycemia; E66.9 Obesity, unspecified; Z68.39 Body mass index [BMI] 39.0-39.9, adult; E78.00 Pure hypercholesterolemia, unspecified; I10 Essential (primary) hypertension; F41.1 Generalized anxiety disorder

== ENCOUNTER → 2024-06-28 10:49 | Outpatient (BNVA) | payer MEDICARE, SELFPAY | PROVIDERS: PCP Internal Medicine; Visit Provider Internal Medicine | DX: Z00.00 Encounter for general adult medical examination without abnormal findings (principal); E11.65 Type 2 diabetes mellitus with hyperglycemia; E66.9 Obesity, unspecified; E78.00 Pure hypercholesterolemia, unspecified; F41.1 Generalized anxiety disorder; I10 Essential (primary) hypertension | CPT/HCPCS: 99397 ==

== ENCOUNTER 2024-10-25 08:29 | Outpatient (REF) | payer MEDICARE, SELFPAY ==
[2024-10-25 10:30] LABS: MANUAL DIFF FLAG NO
[2024-10-25 10:40] LABS: Hematocrit 45.4 % (37.0-47.0); Hemoglobin 15.0 g/dl (12.0-16.0); Imm Gran Abs Auto 0.05 X10*3/uL (0.00-0.03); Imm Gran Pct Auto 0.5 % (0.0-0.4); Lymphocytes Absolute Auto 3.1 X10*3/uL (1.2-4.9); Mean Corpuscular HGB Conc 33.0 g/dl (31.0-35.0); Mean Corpuscular Hemoglobin 29.4 pg (27.0-33.0); Mean Corpuscular Volume 89.0 fL (80.0-98.0); NRBC Abs Auto 0.000 X10*3/uL (0.0-0.012); NRBC Pct Auto 0.0 /100WBC (0.0-0.2); Platelet Count 241 X10*3/uL (160-400); Red Blood Count 5.10 X10*6/uL (4.20-5.50); White Blood Count 10.9 X10*3/uL (4.8-10.8)
[2024-10-25 10:51] LABS: Hemoglobin A1C 204.5408 umol/L; Total Hemoglobin (HGBA1C) 3878.5288 umol/L
[2024-10-25 11:03] LABS: Alanine Aminotransferase 27 U/L (0-31); Albumin Level 4.3 g/dL (3.5-5.0); Alkaline Phosphatase 63 U/L (39-117); Anion Gap 14 (12-20); Aspartate Amino Transferase 26 U/L (5-31); Blood Urea Nitrogen 15 mg/dL (9-16); Calcium 9.2 mg/dL (8.4-10.2); Carbon Dioxide 28 mmol/L (22-29); Chloride 105 mmol/L (96-108); Cholesterol 153 mg/dL (<200); Estimated Glomerular Filt Rate > 60; HDL Cholesterol 40 mg/dL (>40); Potassium 3.7 mmol/L (3.3-5.1); Sodium 143 mmol/L (135-145); Total Protein 7.0 g/dL (6.5-8.0); Triglycerides 191 mg/dL (<150)
[2024-10-25 11:05] LABS: Free T4 (Free Thyroxine) 0.96 ng/dL (0.71-1.85); Thyroid Stimulating Hormone 2.80 uIU/mL (0.32-4.0)
[2024-10-25 11:27] LABS: Folate 14.7 ng/mL (> or = 4.0); Vitamin B12 622 pg/mL (200-900)
[2024-10-25 11:40] LABS: Microalbum/Creatinine Ratio Ur 140.3 ug/mg cr (<30)
== END 2024-10-25 08:30 | disposition home or self-care (01) ==
LOC: HO.HMGCLDS 08:29
PROVIDERS: PCP Internal Medicine; Visit Provider Internal Medicine
DX: E11.65 Type 2 diabetes mellitus with hyperglycemia (principal); E78.00 Pure hypercholesterolemia, unspecified
CPT/HCPCS: 36415; 80053; 80061; 82043; 82306; 82570; 82607; 82746; 83036; 84439; 84443; 85025

== ENCOUNTER 2024-10-31 10:42 | Outpatient (AMB) | payer MEDICARE, SELFPAY ==
--- NOTE | 2024-10-31 11:00 | MHC.PC.OV ---
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: No Accompanied by: Self / Same As Patient Allergies morphine (MORPHINE) Allergy (Severe, Verified 10/31/24 11:03) ANAPHYLAXIS amlodipine (AMLODIPINE) Allergy (Unknown, Verified 10/31/24 11:03) DIZZINESS coconut (COCONUT) Allergy (Unknown, Verified 10/31/24 11:03) HIVES codeine (CODEINE) Allergy (Unknown, Verified 10/31/24 11:03) VOMITING gabapentin Allergy (Unknown, Verified 10/31/24 11:03) swelling lisinopril (LISINOPRIL) Allergy (Unknown, Verified 10/31/24 11:03) COUGH olmesartan (From BENICAR) Allergy (Unknown, Verified 10/31/24 11:03) CRAMPING IN ARMS/LEGS orange (ORANGE) Allergy (Unknown, Verified 10/31/24 11:03) HIVES penicillin V Allergy (Unknown, Verified 10/31/24 11:03) hives Penicillins (PENICILLINS) Allergy (Unknown, Verified 10/31/24 11:03) HIVES nifedipine Adverse Reaction (Severe, Verified 10/31/24 11:03) Flush hydralazine Adverse Reaction (Intermediate, Verified 10/31/24 11:03) Palpitations Medication List - Last Reconciled 10/31/24 by Audrey Charles MD calcium carbonate-vitamin D3 600 mg-5 mcg (200 unit) (Calcium 600 + D(3)) 1 tab PO DAILY [cane As directed] cholecalciferol (vitamin D3) 25 mcg PO DAILY hydrochlorothiazide 25 mg PO DAILY 90 days losartan 100 mg PO DAILY metoprolol succinate ER 200 mg PO DAILY 90 days multivitamin 1 tab PO DAILY potassium chloride ER (Klor-Con M) 20 mEq PO DAILY rosuvastatin 10 mg PO DAILY 90 days Tobacco use date assessed: 06/28/24 Fall risk assessment: No Falls in past year Last assessed Fall Risk: 10/31/24 Dental Screening Dental Screen Date: 06/28/24 HPI DM , HTN HPI Details 2 sons sick cad, PFSH Medical History (Updated 06/28/24 @ 12:09 by Audrey Charles MD) Colonoscopy refused Lumbar degenerative disc disease Renal cell cancer Type 2 diabetes mellitus with hyperglycemia Anxiety and depression Vitamin D deficiency Meralgia paresthetica Obesity (BMI 30-39.9) Hypercholesterolemia Hypertension Surgical History History of kidney surgery History of arthroscopy of left knee History of total abdominal hysterectomy and bilateral salpingo-oophorectomy History of tonsillectomy Family History Father CVD (cardiovascular disease) Mother CVD (cardiovascular disease) Hypertension Brother Prostate cancer Daughter No problems noted. Son No problems noted. Son No problems noted. Son No problems noted. Social History Housing: Condominium Alcohol intake: never Patient Tobacco Use Status: Former Tobacco user Tobacco use type: Cigarette Years Smoked: stopped 36 year old e-Cigarette/Vaping Use: Never Used Second Hand Smoke Exposure: No service: No Current occupational status: retired Cognitive needs: No Hearing needs: No Vision needs: Yes Questionnaire Thrive Questionnaire Date Thrive assessed: 06/28/24 DESTINEE-7 AMB Questionnaire DESTINEE-7 Date DESTINEE - 7 assessed: 06/28/24 Source: Developed by Drs. Julian Oneil, Connie Rodarte, Claude Araiza and colleagues, with an educational perico from [employer]. Physical exam (Primary Care) Vital Signs: Last Vital Signs Pulse 84 10/31/24 11:01 BP 152/78 H 10/31/24 11:01 Pulse Ox 96 10/31/24 11:01 Oxygen Delivery Method Room Air 10/31/24 11:01 BMI result Body Mass Index 39.6 Tobacco/Smoking Status: Tobacco use Status Tobacco use date assessed 06/28/24 10/31/24 11:06 Patient Tobacco Use Status Former Tobacco user 10/31/24 11:06 Tobacco use type Cigarette 10/31/24 11:06 e-Cigarette/Vaping Use Never Used 10/31/24 11:06 Thrive Assessment: Date of Thrive Assessment Date Thrive assessed 06/28/24 10/31/24 11:06 Const General: alert; No acute distress Eyes Conjunctivae: conjunctivae normal Resp Auscultation: clear to auscultation bilaterally Cardio Rate: regular rate Rhythm: regular rhythm GI Inspection: Yes normal to inspection Extrem General: Yes normal to inspection and No edema Coding Level of Care Code Est Pt Level 4 (13692) Diagnoses Type 2 diabetes mellitus with hyperglycemia, without long-term current use of insulin E11.65 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 Hemoglobin A1c goal of less than 7.0. Patient is diet controlled concern about the increase A1c (2) Obesity (BMI 30-39.9): Code(s): E66.9 - Obesity, unspecified Category: Medical Plan: Diet and exercise (3) Hypertension: Code(s): I10 - Essential (primary) hypertension Category: Medical Qualifiers: Hypertension type: essential hypertension Qualified Code(s): I10 - Essential (primary) hypertension Plan: Continue with blood pressure medication. Decrease salt intake and exercise on metoprolol 200 mg once a day losartan 100 mg once a day hydrochlorothiazide 25 mg once a day (4) Hypercholesterolemia: Code(s): E78.00 - Pure hypercholesterolemia, unspecified Category: Medical Plan: Avoid fried foods, chicken skin, eggs, butter margarine, pastries and meat. Be it pork or beef they have a lot of cholesterol LDL goal of less than 100 and triglyceride of less than 150. On rosuvastatin 10 mg once a day (5) Generalized anxiety disorder: Code(s): F41.1 - Generalized anxiety disorder Category: Medical Plan: Stable Plan History of Present Illness The patient is an 84-year-old female presenting for management of chronic conditions including diabetes mellitus, hypertension, and hypercholesterolemia. The patient has a history of diabetes mellitus, with a recent hemoglobin A1c of 7.0, indicating a rise from previous values of 6.4 and 6.5. The condition is currently diet-controlled, but there is concern about the increasing A1c levels. The patient admits to dietary indiscretions, particularly with sweets, and prefers to manage the condition without medication at this time. Hypertension is managed with metoprolol, losartan, and hydrochlorothiazide, but recent measurements indicate elevated blood pressure at 150/60 mmHg. The patient is experiencing stress due to family health issues, which may be contributing to the elevated blood pressure. Hypercholesterolemia is being treated with rosuvastatin, with LDL levels at 75 mg/dL, which is within the target range, although triglycerides are elevated at 191 mg/dL. The patient has lumbar degenerative disc disease and generalized anxiety disorder, both of which are chronic conditions that have been previously diagnosed. Proteinuria has been detected for the first time, indicating potential diabetic nephropathy, although it does not alter the current management plan. Preventative care measures include a tetanus vaccination, which is due as the last one was administered in 2013. Health Maintenance - Tetanus vaccination due, last administered in 2013 - Monitoring of blood pressure, cholesterol, and blood glucose levels Social History - Family status: Patient has two sons with significant medical issues, contributing to stress. - Stress management: Patient reports high stress levels due to family responsibilities and health concerns. Review of Systems - Cardiovascular: Reports elevated blood pressure. Denies chest pain or palpitations. - Endocrine: Reports increased blood glucose levels. Denies hypoglycemic episodes. - Musculoskeletal: Reports chronic back pain due to lumbar degenerative disc disease. - Psychiatric: Reports anxiety related to family health issues. Physical Exam - Cardiovascular: Blood pressure 150/60 mmHg, indicating hypertension. Results - Labs: Hemoglobin A1c at 7.0, indicating increased blood glucose levels. - Labs: LDL cholesterol at 75 mg/dL, triglycerides at 191 mg/dL. - Labs: Proteinuria detected, indicating potential diabetic nephropathy. Plan The management plan for diabetes mellitus includes maintaining a hemoglobin A1c goal of less than 7.0 through diet control, with the patient expressing a preference to avoid medication at this time. Monitoring of blood glucose levels will continue, with emphasis on dietary modifications to reduce sugar intake. For hypertension, the patient is currently on metoprolol, losartan, and hydrochlorothiazide, with a focus on stress management due to family-related stressors contributing to elevated blood pressure. Regular monitoring of blood pressure is advised to ensure control. Hypercholesterolemia management involves continued use of rosuvastatin, with a target LDL of less than 70 mg/dL and triglycerides less than 150 mg/dL. The patient is advised to maintain dietary measures to manage cholesterol levels. Proteinuria has been noted, indicating potential diabetic nephropathy, but does not alter the current management plan, which includes controlling blood pressure and blood glucose levels. Preventative care includes updating the tetanus vaccination, as the last dose was administered in 2013. Patient was informed and verbally consented to the use of an ambient scribe for clinic note documentation during this visit. Discussion Notes During the visit, I discussed with the patient the importance of maintaining a hemoglobin A1c below 7.0 and the role of diet in managing diabetes mellitus. We reviewed her current medications for hypertension and the need for stress management due to family issues impacting her blood pressure. I emphasized the continuation of rosuvastatin for hypercholesterolemia and the importance of dietary control to manage triglyceride levels. We also discussed the detection of proteinuria and its implications, although it does not change the current management strategy. Preventative care measures, including the need for a tetanus booster, were also addressed. Patient Instructions - Monitor blood glucose levels regularly and aim to keep hemoglobin A1c below 7.0. - Follow a diet low in sugar and cholesterol to manage diabetes and hypercholesterolemia. - Continue taking prescribed medications for hypertension and cholesterol. - Manage stress levels to help control blood pressure. - Schedule a tetanus booster as the last one was in 2013. Medications: Refilled potassium chloride ER (Klor-Con M) 20 mEq PO DAILY 90 tabs 3RF
[2024-10-31 11:01] VITALS: BP 152/78; PULSE 84; O2SAT 96; BMI 39.6
== END 2024-10-31 11:56 | disposition home or self-care (01) ==
LOC: HO.HMCH 10:43
PROVIDERS: PCP Internal Medicine; Visit Provider Internal Medicine
DX: E11.65 Type 2 diabetes mellitus with hyperglycemia (principal); E66.9 Obesity, unspecified; Z68.39 Body mass index [BMI] 39.0-39.9, adult; I10 Essential (primary) hypertension; E78.00 Pure hypercholesterolemia, unspecified; F41.1 Generalized anxiety disorder

== ENCOUNTER → 2024-10-31 10:42 | Outpatient (BNVA) | payer MEDICARE, SELFPAY | PROVIDERS: PCP Internal Medicine; Visit Provider Internal Medicine | DX: E11.65 Type 2 diabetes mellitus with hyperglycemia (principal); I10 Essential (primary) hypertension; E66.9 Obesity, unspecified; E78.00 Pure hypercholesterolemia, unspecified; F41.1 Generalized anxiety disorder; M51.369 Other intervertebral disc degeneration, lumbar region without mention of lumbar back pain or lower extremity pain; R80.9 Proteinuria, unspecified; Z68.39 Body mass index [BMI] 39.0-39.9, adult | CPT/HCPCS: 99212 ==

== ENCOUNTER 2025-01-15 10:07 | Outpatient (AMB) | payer MEDICARE, SELFPAY ==
[2025-01-15 10:11] VITALS: BP 146/74; PULSE 77; TEMP 36.7; O2SAT 94; BMI 39.6
--- NOTE | 2025-01-15 10:11 | MHC.OFFWIV ---
Intake Vital Signs 01/15/25 10:11 Height 5 ft Weight 203 lb BMI 39.6 BP 146/74 H Blood Pressure Location Lt brachial Position Sitting Pulse 77 Pulse Source Pulse Oximeter Temp 98.1 F Temp Source Oral Pulse Oximetry (%) 94 Oxygen Delivery Method Room Air Intake Visit Reasons: EP bilat hand numbness/tingling Intake Note: pt presents with ANNA hand numbness with occasional radiating up to elbows for a couple also notes LT thumb getting stuck Patient Tobacco Use Status: Former Tobacco user Allergies morphine (MORPHINE) Allergy (Severe, Verified 01/15/25 10:18) ANAPHYLAXIS amlodipine (AMLODIPINE) Allergy (Unknown, Verified 01/15/25 10:18) DIZZINESS coconut (COCONUT) Allergy (Unknown, Verified 01/15/25 10:18) HIVES codeine (CODEINE) Allergy (Unknown, Verified 01/15/25 10:18) VOMITING gabapentin Allergy (Unknown, Verified 01/15/25 10:18) swelling lisinopril (LISINOPRIL) Allergy (Unknown, Verified 01/15/25 10:18) COUGH olmesartan (From BENICAR) Allergy (Unknown, Verified 01/15/25 10:18) CRAMPING IN ARMS/LEGS orange (ORANGE) Allergy (Unknown, Verified 01/15/25 10:18) HIVES Penicillins (PENICILLINS) Allergy (Unknown, Verified 01/15/25 10:18) HIVES nifedipine Adverse Reaction (Severe, Verified 01/15/25 10:18) Flush hydralazine Adverse Reaction (Intermediate, Verified 01/15/25 10:18) Palpitations Medication List - Last Reconciled 01/15/25 by Dipika Gary MD calcium carbonate-vitamin D3 600 mg-5 mcg (200 unit) (Calcium 600 + D(3)) 1 tab PO DAILY [cane As directed] suetowbns-jqzjehzo-ppw-hyalur 40-5-3.3 mg (Move Free Ultra Triple Action (boron)) tabs PO cholecalciferol (vitamin D3) 25 mcg PO DAILY fexofenadine (Keyana Allergy) 180 mg PO DAILY hydrochlorothiazide 25 mg PO DAILY 90 days losartan 100 mg PO DAILY metoprolol succinate ER 200 mg PO DAILY 90 days multivitamin 1 tab PO DAILY potassium chloride ER (Klor-Con M) 20 mEq PO DAILY rosuvastatin 10 mg PO DAILY 90 days Do you need a note to return to daycare/school/sports/work: No HPI EP bilat hand numbness/tingling HPI Details History of Present Illness The patient is an 84-year-old female presenting with carpal tunnel syndrome. Carpal tunnel syndrome: - Symptoms initially started with tingling and stiffness in a couple of fingers, becoming more persistent and affecting the whole hand over time. - Symptoms have been present off and on and have worsened over the past two weeks. - Both hands are affected, with current symptoms being constant rather than sporadic. - Previously able to knit, but has stopped due to inability to feel the needles. - Experiences stiffness and gdnv-evy-[id number] sensation, described as the hands not feeling like they belong to her. - Associated symptoms include thumbs getting stuck. - Aggravating factor includes excessive recent driving, due to hand position on the steering wheel, leading to increased pressure on the wrists. Social History: - Frequent driving due to having to care for a son who suffered a stroke and lives a distance away. Problem List Paresthesia both hands most likely carpal tunnel syndrome Plan 1. Carpal Tunnel Syndrome - Explained that symptoms are due to pressure on the median nerve in the wrist, consistent with carpal tunnel syndrome. - Advised wearing a splint at night and while driving to alleviate pressure on the wrists. - Requested a diagnostic test to assess the severity of nerve involvement. EMG nerve conduction study ordered - Recommended seeing the primary care physician for further evaluation and potential referral to a specialist. - Advised different holding position on the steering wheel to reduce pressure when driving. 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 awake oriented x3 motor intact Skin: Normal turgor [facility] Medical History Colonoscopy refused Lumbar degenerative disc disease Renal cell cancer Type 2 diabetes mellitus with hyperglycemia Anxiety and depression Vitamin D deficiency Meralgia paresthetica Obesity (BMI 30-39.9) Hypercholesterolemia Hypertension Surgical History History of kidney surgery History of arthroscopy of left knee History of total abdominal hysterectomy and bilateral salpingo-oophorectomy History of tonsillectomy Family History Father CVD (cardiovascular disease) Mother CVD (cardiovascular disease) Hypertension Brother Prostate cancer Daughter No problems noted. Son No problems noted. Son No problems noted. Son No problems noted. Social History Housing: Condominium Alcohol intake: never Patient Tobacco Use Status: Former Tobacco user Tobacco use type: Cigarette Years Smoked: stopped 36 year old e-Cigarette/Vaping Use: Never Used Second Hand Smoke Exposure: No service: No Current occupational status: retired Cognitive needs: No Hearing needs: No Vision needs: Yes Physical Exam Vital Signs: Last Vital Signs Temp 98.1 F 01/15/25 10:11 Pulse 77 01/15/25 10:11 BP 146/74 H 01/15/25 10:11 Pulse Ox 94 01/15/25 10:11 Oxygen Delivery Method Room Air 01/15/25 10:11 BMI result Body Mass Index 39.6 Assessment & Plan Assessment & Plan (1) Paresthesia of both hands: Code(s): R20.2 - Paresthesia of skin Plan Plan 1. Carpal Tunnel Syndrome - Explained that symptoms are due to pressure on the median nerve in the wrist, consistent with carpal tunnel syndrome. - Advised wearing a splint at night and while driving to alleviate pressure on the wrists. - Requested a diagnostic test to assess the severity of nerve involvement. EMG nerve conduction study ordered - Recommended seeing the primary care physician for further evaluation and potential referral to a specialist. - Advised different holding position on the steering wheel to reduce pressure when driving. Orders: Orders NE electromyogram (EMG) Today R20.2 - Paresthesia of skin NE nerve conduction velocity Today R20.2 - Paresthesia of skin Coding Level of Care Code Est Pt Level 3 (07385) Diagnoses Paresthesia of both hands R20.2
== END 2025-01-15 11:02 | disposition home or self-care (01) ==
PROVIDERS: PCP Internal Medicine; Visit Provider Internal Medicine
DX: R20.2 Paresthesia of skin (principal)

== ENCOUNTER → 2025-01-15 10:07 | Outpatient (BNVA) | payer MEDICARE, SELFPAY | PROVIDERS: PCP Internal Medicine; Visit Provider Internal Medicine | DX: G56.03 Carpal tunnel syndrome, bilateral upper limbs (principal) | CPT/HCPCS: 99212 ==

== ENCOUNTER 2025-02-20 08:35 | Outpatient (AMB) | payer MEDICARE, SELFPAY ==
[2025-02-20 08:42] VITALS: BP 140/88; PULSE 83; O2SAT 97; BMI 38.9
--- NOTE | 2025-02-20 08:42 | MHC.PC.OV ---
Vital Signs 02/20/25 08:42 Height 5 ft Weight 199 lb BMI 38.9 BP 140/88 H Blood Pressure Location Lt brachial Position Sitting Pulse 83 Pulse Source Pulse Oximeter Pulse Oximetry (%) 97 Oxygen Delivery Method Room Air Intake Visit Reasons: DM , HTN Allergies morphine (MORPHINE) Allergy (Severe, Verified 02/20/25 08:43) ANAPHYLAXIS amlodipine (AMLODIPINE) Allergy (Unknown, Verified 02/20/25 08:43) DIZZINESS coconut (COCONUT) Allergy (Unknown, Verified 02/20/25 08:43) HIVES codeine (CODEINE) Allergy (Unknown, Verified 02/20/25 08:43) VOMITING gabapentin Allergy (Unknown, Verified 02/20/25 08:43) swelling lisinopril (LISINOPRIL) Allergy (Unknown, Verified 02/20/25 08:43) COUGH olmesartan (From BENICAR) Allergy (Unknown, Verified 02/20/25 08:43) CRAMPING IN ARMS/LEGS orange (ORANGE) Allergy (Unknown, Verified 02/20/25 08:43) HIVES Penicillins (PENICILLINS) Allergy (Unknown, Verified 02/20/25 08:43) HIVES nifedipine Adverse Reaction (Severe, Verified 02/20/25 08:43) Flush hydralazine Adverse Reaction (Intermediate, Verified 02/20/25 08:43) Palpitations Medication List - Last Reconciled 02/20/25 by Audrey Charles MD calcium carbonate-vitamin D3 600 mg-5 mcg (200 unit) (Calcium 600 + D(3)) 1 tab PO DAILY [cane As directed] gzjevjexi-johbizmv-usz-hyalur 40-5-3.3 mg (Move Free Ultra Triple Action (boron)) tabs PO cholecalciferol (vitamin D3) 25 mcg PO DAILY fexofenadine (Keyana Allergy) 180 mg PO DAILY losartan 100 mg PO DAILY metoprolol succinate ER 200 mg PO DAILY 90 days multivitamin 1 tab PO DAILY potassium chloride ER (Klor-Con M) 20 mEq PO DAILY rosuvastatin 10 mg PO DAILY 90 days spironolacton-hydrochlorothiaz 25-25 mg 1 tab PO DAILY Tobacco use date assessed: 06/28/24 Fall risk assessment: 1 Fall in past year Last assessed Fall Risk: 02/20/25 Dental Screening Dental Screen Date: 06/28/24 [facility] Medical History Colonoscopy refused Lumbar degenerative disc disease Renal cell cancer Type 2 diabetes mellitus with hyperglycemia Anxiety and depression Vitamin D deficiency Meralgia paresthetica Obesity (BMI 30-39.9) Hypercholesterolemia Hypertension Surgical History History of kidney surgery History of arthroscopy of left knee History of total abdominal hysterectomy and bilateral salpingo-oophorectomy History of tonsillectomy Family History Father CVD (cardiovascular disease) Mother CVD (cardiovascular disease) Hypertension Brother Prostate cancer Daughter No problems noted. Son No problems noted. Son No problems noted. Son No problems noted. Social History Housing: Condominium Alcohol intake: never Patient Tobacco Use Status: Former Tobacco user Tobacco use type: Cigarette Years Smoked: stopped 36 year old e-Cigarette/Vaping Use: Never Used Second Hand Smoke Exposure: No service: No Current occupational status: retired Cognitive needs: No Hearing needs: No Vision needs: Yes Questionnaire Thrive Questionnaire Date Thrive assessed: 06/28/24 DESTINEE-7 AMB Questionnaire DESTINEE-7 Date DESTINEE - 7 assessed: 06/28/24 Source: Developed by Drs. Julian Oneil, Connie Rodarte, Claude Araiza and colleagues, with an educational perico from [employer]. Physical exam (Primary Care) Vital Signs: Last Vital Signs Pulse 83 02/20/25 08:42 BP 140/88 H 02/20/25 08:42 Pulse Ox 97 02/20/25 08:42 Oxygen Delivery Method Room Air 02/20/25 08:42 BMI result Body Mass Index 38.9 Tobacco/Smoking Status: Tobacco use Status Tobacco use date assessed 06/28/24 02/20/25 08:44 Patient Tobacco Use Status Former Tobacco user 02/20/25 08:44 Tobacco use type Cigarette 02/20/25 08:44 e-Cigarette/Vaping Use Never Used 02/20/25 08:44 Thrive Assessment: Date of Thrive Assessment Date Thrive assessed 06/28/24 02/20/25 08:44 Const General: alert; No acute distress Eyes Conjunctivae: conjunctivae normal Resp Auscultation: clear to auscultation bilaterally Cardio Rate: regular rate Rhythm: regular rhythm GI Inspection: Yes normal to inspection Extrem General: Yes normal to inspection and No edema Results AMB Hemoglobin A1c AMB Hemoglobin A1c 5.5 % Last Edit by Renate Leigh CMA on 02/20/25 08:59 Immunizations Tenivac (PF) 5 Lf unit-2 Lf unit/0.5 mL intramuscular suspension Performing Provider: Audrey Charles MD Performing [facility] [place] [facility] Administered by: Renate Leigh CMA on 02/20/25 09:34 Dose Route Admin Location Dispensed Lot Number Expiration Date [facility] [employer] 0.5 mL IM Left Deltoid 0.5 mL [id number] 07/17/26 31654-477-47 [employer] Total Dispensed Waste 0.5 mL 0 % VIS Given Date VIS Provided VIS Publication Date 02/20/25 Single Vaccine 20 Eligibility Eligibility Date Funding Source Not [facility] Eligible 02/20/25 Private Results Reviewed Results Reviewed: Laboratory Last Values Hgb A1c (Clinic) 5.5 % (4.0-6.0) 02/20/25 08:45 Coding Level of Care Code Est Pt Level 4 (62906) Complex EM visit Add On G2211 Diagnoses Type 2 diabetes mellitus with hyperglycemia, without long-term current use of insulin E11.65 Diabetes mellitus skilled nursing insulin use: without skilled nursing use Obesity (BMI 30-39.9) E66.9 Essential hypertension I10 Hypertension type: essential hypertension Hypercholesterolemia E78.00 Bilateral hand numbness R20.0 Generalized anxiety disorder F41.1 Assessment & Plan Assessment & Plan (1) Type 2 diabetes mellitus with hyperglycemia: Comment: Dr. Duckworth Code(s): E11.65 - Type 2 diabetes mellitus with hyperglycemia Category: Medical Qualifiers: Diabetes mellitus skilled nursing insulin use: without skilled nursing use Qualified Code(s): E11.65 - Type 2 diabetes mellitus with hyperglycemia Plan: Decrease the amount of carbohydrate intake, pasta, bread, rice and potatoes are all sugar and that is aside from all the sweet stuff, remember that fruits are good but they are Sweet also. Hemoglobin A1c goal of less than 7.0. Patient is diet controlled (2) Obesity (BMI 30-39.9): Code(s): E66.9 - Obesity, unspecified Category: Medical Plan: Diet and exercise (3) Hypertension: Code(s): I10 - Essential (primary) hypertension Category: Medical Qualifiers: Hypertension type: essential hypertension Qualified Code(s): I10 - Essential (primary) hypertension Plan: Continue with blood pressure medication. Decrease salt intake and exercise takes losartan 100 mg once a day metoprolol 200 mg once a day hydrochlorothiazide 25 mg once a day. Concern that the blood pressure remains to be high will change hydrochlorothiazide to Aldactazide (4) Hypercholesterolemia: Code(s): E78.00 - Pure hypercholesterolemia, unspecified Category: Medical Plan: Avoid fried foods, chicken skin, eggs, butter margarine, pastries and meat. Be it pork or beef they have a lot of cholesterol LDL goal of less than 100 and triglyceride of less than 150 on rosuvastatin 10 mg once a day (5) Bilateral hand numbness: Code(s): R20.0 - Anesthesia of skin Category: Medical Plan: Discussed about most common reason of carpal tunnel syndrome and diabetes mellitus. Patient declined testing for now. Advised to use the braces at night. If progressing patient needs to notify us for further testing (6) Generalized anxiety disorder: Code(s): F41.1 - Generalized anxiety disorder Category: Medical Plan: Stable Plan History of Present Illness The patient is an 84-year-old female presenting for a follow-up visit for multiple chronic conditions and evaluation of bilateral hand numbness. Her medical history is significant for diabetes mellitus, hypertension, hypercholesterolemia, lumbar degenerative disc disease, and generalized anxiety disorder. The patient reports experiencing bilateral hand numbness for the past 2.5 months, describing the sensation as pins and needles affecting all fingers of both hands. She was previously evaluated for this symptom in December, at which time carpal tunnel syndrome was discussed. She recalls having a nerve conduction test for her hands approximately 30 years ago, which she describes as an unpleasant experience. Additionally, she notes that her thumb and another finger get stuck, which has been identified as trigger finger. Regarding her diabetes, her management has been successful with diet and exercise, and she is not on any medications for it. Her hemoglobin A1c has improved from 7.0% in October to 5.5% at this visit. She reports not skipping meals. For hypertension, the patient is on losartan 100 mg, metoprolol 200 mg, and hydrochlorothiazide 25 mg daily. She has been on hydrochlorothiazide since she was 19 years old and had a past episode of dizziness with amlodipine. She does not monitor her blood pressure at home. There is a history of hospitalization for hypokalemia, which may have been related to diuretic use. Her hypercholesterolemia is managed with rosuvastatin 10 mg daily, and her LDL was 75 in October. Her lab work from October also showed mild leukocytosis and proteinuria, with normal electrolytes and renal function. About three weeks ago, the patient had a fall when her right leg gave out while getting into a car; she did not sustain any major injuries apart from a bruise on her foot. She also describes an isolated episode of feeling warm and near-syncope while at her computer. In terms of health maintenance, the patient is due for a mammogram and has declined colonoscopy. Her last tetanus vaccination was in 2013, and she is up to date on her pneumonia shots. She had shingles at age 30. Health Maintenance The patient is due for a tetanus vaccination, which was administered during the visit. She has declined further mammograms and colonoscopy. Discussion about a bone density scan was held, and the patient opted to defer it for now, citing a recent fall without fracture as evidence of bone strength. Social History - Functional Status: The patient reports her legs and joints are getting weaker. - She cares for her son. - She reports a fall about three weeks ago after her leg gave out. - She reports urinary urgency, particularly upon arriving home by car. - Nutritional Intake: The patient reports she does not skip meals and drinks a lot of water. Review of Systems - Constitutional: Reports a 4-pound weight loss. - Reports an isolated episode of feeling warm and near-syncope. - Neurological: Reports bilateral hand numbness described as pins and needles for the past 2.5 months. - Reports a weird feeling in her feet but denies numbness similar to her hands. - Reports her legs are getting weaker. - Musculoskeletal: Reports her thumb and another finger get stuck . - Reports that her joints are getting weaker. - Cardiovascular: Denies palpitations or chest pain. - Skin: Reports dry skin with patches, possibly eczema. - Denies itching. - Genitourinary: Reports urinary frequency and urgency. Physical Exam - Vitals: Blood pressure is elevated. - Skin: Examination reveals dry patches on the skin, consistent with eczema. Results - Labs (Today): Hemoglobin A1c is 5.5%. - Labs (October 2024): Hemoglobin A1c was 7.0%. - Lipid panel showed LDL of 75. - CBC revealed mild leukocytosis and no anemia. - CMP showed normal electrolytes and renal function. - Urinalysis revealed proteinuria. Plan Patient was informed and verbally consented to the use of an ambient scribe for clinic note documentation during this visit. 1. Bilateral Hand Numbness/Carpal Tunnel Syndrome The patient's bilateral hand numbness has been present for 2.5 months. The differential diagnosis includes carpal tunnel syndrome and diabetic neuropathy. A nerve conduction study was discussed to differentiate the cause, but the patient is hesitant due to a negative past experience. A conservative approach will be initiated, with the patient advised to wear wrist braces at night. If symptoms progress, a nerve conduction test will be strongly recommended to determine the need for further intervention, such as a surgical procedure for carpal tunnel, to prevent permanent nerve damage. The patient's report of a stuck finger was identified as trigger finger, a separate tendon issue. 2. Hypertension The patient's blood pressure remains elevated on her current regimen of losartan 100 mg, metoprolol 200 mg, and hydrochlorothiazide 25 mg. To improve blood pressure control, the hydrochlorothiazide will be changed to Aldactazide (spironolactone/hydrochlorothiazide) to be taken once daily in the morning. The patient will have a blood test in one week to monitor electrolytes, particularly potassium, given the medication change and her history of hypokalemia. She was advised to continue her potassium supplement for now and to stay well-hydrated. 3. Diabetes Mellitus The patient's diabetes is well-controlled with diet and exercise, as evidenced by a current hemoglobin A1c of 5.5%. Plan is to continue the current management. The patient was counseled on the importance of not skipping meals to avoid hypoglycemia. 4. Hypercholesterolemia The patient's cholesterol is well-managed with rosuvastatin 10 mg daily, with an LDL of 75. She will continue the current medication. Discussion Notes I discussed with the patient that her bilateral hand numbness could be caused by either carpal tunnel syndrome or diabetic neuropathy. I explained that a nerve conduction study would clarify the diagnosis, but acknowledged her reluctance due to a past negative experience. We agreed to a trial of wearing wrist braces at night as a conservative measure. I stressed that if symptoms worsen, the test would be necessary to avoid potential permanent nerve damage and determine if a surgical procedure is warranted. Regarding her elevated blood pressure, I explained my plan to change her hydrochlorothiazide to Aldactazide to achieve better control. I informed her of the need for a follow-up blood test in one week to monitor her electrolytes, especially potassium, due to this medication change and her medical history. I commended her for the excellent control of her diabetes, with her HbA1c at 5.5%, and reinforced the importance of not skipping meals. We also reviewed her vaccination status, and she agreed to and received a Td booster today. She declined a mammogram and a colonoscopy. Patient Instructions - To help with the numbness in your hands, please wear a wrist brace on both hands every night while you sleep. - Please stop taking your current hydrochlorothiazide pill. - Start taking the new blood pressure pill, Aldactazide, once every morning. - In one week, please go for a blood test to check your kidney function and electrolyte levels. - You may continue taking your potassium supplement as you have been. - Keep drinking plenty of water. - Continue managing your diabetes with your diet and do not skip meals. - You received a Tetanus (Td) shot today. - Please let me know if the numbness in your hands gets worse or if you start dropping things. Orders: Orders AMB Hemoglobin A1c Today Z13.9 - Encounter for screening, unspecified XR DEXA axial skeleton Today M51.36 - Other intervertebral disc degeneration, lumbar region, M81.0 - Age-related osteoporosis without current pathological fracture Td Immunization Today Z23 - Encounter for immunization Basic Metabolic Panel 1 Week I10 - Essential (primary) hypertension Medications: New spironolacton-hydrochlorothiaz 25-25 mg 1 tab PO DAILY 30 tabs 2RF I10 - Essential (primary) hypertension Discontinued hydrochlorothiazide Discontinued Reason: Doctor's Order 25 mg PO DAILY 90 days 90 tabs 2RF
== END 2025-02-20 09:42 | disposition home or self-care (01) ==
LOC: HO.HMCH 08:36
PROVIDERS: PCP Internal Medicine; Visit Provider Internal Medicine
DX: E11.65 Type 2 diabetes mellitus with hyperglycemia (principal); E66.9 Obesity, unspecified; Z68.38 Body mass index [BMI] 38.0-38.9, adult; I10 Essential (primary) hypertension; E78.00 Pure hypercholesterolemia, unspecified; R20.0 Anesthesia of skin; F41.1 Generalized anxiety disorder; Z23 Encounter for immunization

== ENCOUNTER → 2025-02-20 08:35 | Outpatient (BNVA) | payer MEDICARE, SELFPAY | PROVIDERS: PCP Internal Medicine; Visit Provider Internal Medicine | DX: E11.65 Type 2 diabetes mellitus with hyperglycemia (principal); E66.9 Obesity, unspecified; I10 Essential (primary) hypertension; E78.00 Pure hypercholesterolemia, unspecified; R20.0 Anesthesia of skin; F41.1 Generalized anxiety disorder; G56.03 Carpal tunnel syndrome, bilateral upper limbs; Z23 Encounter for immunization; Z68.38 Body mass index [BMI] 38.0-38.9, adult | CPT/HCPCS: 83036; 90471; 90714; 99212 ==

== ENCOUNTER 2025-03-01 07:13 | Outpatient (REF) | payer MEDICARE, SELFPAY ==
[2025-03-01 11:11] LABS: Anion Gap 14 (12-20); Blood Urea Nitrogen 20 mg/dL (9-16); Calcium 9.3 mg/dL (8.4-10.2); Carbon Dioxide 28 mmol/L (22-29); Chloride 105 mmol/L (96-108); Estimated Glomerular Filt Rate > 60; Potassium 4.2 mmol/L (3.3-5.1); Sodium 143 mmol/L (135-145)
== END 2025-03-01 07:14 | disposition home or self-care (01) ==
LOC: HO.HMGCLDS 07:13
PROVIDERS: PCP Internal Medicine; Visit Provider Internal Medicine
DX: I10 Essential (primary) hypertension (principal)
CPT/HCPCS: 36415; 80048

== ENCOUNTER 2025-03-18 10:41 | Outpatient (REF) | payer MEDICARE, SELFPAY ==
[2025-03-18 13:23] LABS: Appearance Urine Turbid; Glucose Urine UA Negative (Negative); PH 6.0 (5.0-9.0); Specific Gravity - Urine 1.020 (1.005-1.025); UMIC TRIGGER UACC YES
[2025-03-18 13:43] LABS: UACC Culture Trigger YES
== END 2025-03-18 10:42 | disposition home or self-care (01) ==
LOC: HO.LNP 10:41
PROVIDERS: Visit Provider Internal Medicine
DX: R20.0 Anesthesia of skin (principal); R30.0 Dysuria; N39.0 Urinary tract infection, site not specified
CPT/HCPCS: 81001; 81003; 87086; 87088; 87186; 99212

== ENCOUNTER 2025-03-18 10:41 | Outpatient (AMB) | payer MEDICARE, SELFPAY ==
--- NOTE | 2025-03-18 10:48 | MHC.PC.OV ---
Vital Signs 03/18/25 10:49 03/18/25 11:17 Height 5 ft Weight 199 lb 2 oz BMI 38.9 BP 150/90 H 148/78 H Blood Pressure Location Lt brachial Position Sitting Pulse 109 H Pulse Source Pulse Oximeter Temp 96.9 F Temp Source Temporal Artery Scan Pulse Oximetry (%) 95 Oxygen Delivery Method Room Air Intake Visit Reasons: Urinary tract infection Intake Note: Patient is here to follow up on UTI. Vessel Liner Required: No Events Manager: Not Required per policy Accompanied by: Self / Same As Patient Allergies morphine (MORPHINE) Allergy (Severe, Verified 03/18/25 11:07) ANAPHYLAXIS amlodipine (AMLODIPINE) Allergy (Unknown, Verified 03/18/25 11:07) DIZZINESS coconut (COCONUT) Allergy (Unknown, Verified 03/18/25 11:07) HIVES codeine (CODEINE) Allergy (Unknown, Verified 03/18/25 11:07) VOMITING gabapentin Allergy (Unknown, Verified 03/18/25 11:07) swelling lisinopril (LISINOPRIL) Allergy (Unknown, Verified 03/18/25 11:07) COUGH olmesartan (From BENICAR) Allergy (Unknown, Verified 03/18/25 11:07) CRAMPING IN ARMS/LEGS orange (ORANGE) Allergy (Unknown, Verified 03/18/25 11:07) HIVES Penicillins (PENICILLINS) Allergy (Unknown, Verified 03/18/25 11:07) HIVES nifedipine Adverse Reaction (Severe, Verified 03/18/25 11:07) Flush hydralazine Adverse Reaction (Intermediate, Verified 03/18/25 11:07) Palpitations Medication List - Last Reconciled 03/18/25 by Tessy Crenshaw PA-C calcium carbonate-vitamin D3 600 mg-5 mcg (200 unit) (Calcium 600 + D(3)) 1 tab PO DAILY [cane As directed] xjhcsabxq-qcmsmrun-jap-hyalur 40-5-3.3 mg (Move Free Ultra Triple Action (boron)) tabs PO cholecalciferol (vitamin D3) 25 mcg PO DAILY fexofenadine (Keyana Allergy) 180 mg PO DAILY hydrochlorothiazide 25 mg PO DAILY 90 days losartan 100 mg PO DAILY metoprolol succinate ER 200 mg PO DAILY 90 days multivitamin 1 tab PO DAILY potassium chloride ER (Klor-Con M) 20 mEq PO DAILY rosuvastatin 10 mg PO DAILY 90 days Tobacco use date assessed: 03/18/25 Fall risk assessment: No Falls in past year Last assessed Fall Risk: 03/18/25 Dental Screening Dental Screen Date: 06/28/24 HPI Urinary tract infection HPI Details 84 year old female with past medical history of DM, generalized anxiety disorder, hypercholesterolemia, hypertension last seen 03/12 coming in for acute problem. Presenting for evaluation of symptoms consistent with a urinary tract infection (UTI) and hand numbness. The patient began experiencing burning pain with urination about three days ago, which has been very uncomfortable and has caused some hesitancy to urinate. The patient denies any prior history of UTIs. For the past one to two months, the patient has experienced new-onset numbness and a tnwb-mzm-nowtnqw sensation in both hands, which has been spreading proximally. The patient has a remote history of carpal tunnel syndrome that resolved after stopping work, but reports that wearing splints now is not helping the current symptoms. Dr. Charles had recommended nerve study test at last visit. [facility] Medical History Colonoscopy refused Lumbar degenerative disc disease Renal cell cancer Type 2 diabetes mellitus with hyperglycemia Anxiety and depression Vitamin D deficiency Meralgia paresthetica Obesity (BMI 30-39.9) Hypercholesterolemia Hypertension Surgical History History of kidney surgery History of arthroscopy of left knee History of total abdominal hysterectomy and bilateral salpingo-oophorectomy History of tonsillectomy Family History Father CVD (cardiovascular disease) Mother CVD (cardiovascular disease) Hypertension Brother Prostate cancer Daughter No problems noted. Son No problems noted. Son No problems noted. Son No problems noted. Social History Housing: Condominium Alcohol intake: never Patient Tobacco Use Status: Former Tobacco user Tobacco use type: Cigarette Years Smoked: stopped 36 year old e-Cigarette/Vaping Use: Never Used Second Hand Smoke Exposure: Yes service: No Current occupational status: retired Cognitive needs: Yes (Cane) Hearing needs: No Vision needs: Yes Questionnaire Thrive Questionnaire Date Thrive assessed: 06/28/24 DESTINEE-7 AMB Questionnaire DESTINEE-7 Date DESTINEE - 7 assessed: 06/28/24 Source: Developed by Drs. Julian Oneil, Connie Rodarte, Claude Araiza and colleagues, with an educational perico from [employer]. Review of Systems Const Denies body aches, Denies chills and Denies fever(s) Eyes Reports no additional complaints ENT Denies dizziness Card Denies chest pain, Denies lightheadedness and Denies dyspnea Resp Denies dyspnea GI Denies abdominal pain, Denies nausea and Denies vomiting Reports as per HPI Musc Reports no additional complaints and Denies abnormal gait Skin/Breast Reports system reviewed and no additional complaints, except as documented Neuro Denies abnormal gait and Denies dizziness Psych Reports no additional complaints Physical exam (Primary Care) Vital Signs: Last Vital Signs Temp 96.9 F 03/18/25 10:49 Pulse 109 H 03/18/25 10:49 BP 148/78 H 03/18/25 11:17 Pulse Ox 95 03/18/25 10:49 Oxygen Delivery Method Room Air 03/18/25 10:49 BMI result Body Mass Index 38.9 Tobacco/Smoking Status: Tobacco use Status Tobacco use date assessed 03/18/25 03/18/25 11:06 Patient Tobacco Use Status Former Tobacco user 03/18/25 11:06 Tobacco use type Cigarette 03/18/25 11:06 e-Cigarette/Vaping Use Never Used 03/18/25 11:06 Thrive Assessment: Date of Thrive Assessment Date Thrive assessed 06/28/24 03/18/25 11:06 Const General: cooperative, healthy appearing, comfortable and no acute distress Orientation/consciousness: patient oriented x3 HENMT Head: Yes normocephalic Ears: hearing grossly normal bilaterally General nose exam: Normal external nose present Eyes General: appearance normal, both eyes and all related structures Conjunctivae: conjunctivae normal Neck Neck: Yes full ROM and Yes no lymphadenopathy Resp Effort & Inspection: normal respiratory effort Auscultation: clear to auscultation bilaterally, no crackles, no rales, no rhonchi and no wheezes Cardio Rate: regular rate Rhythm: regular rhythm Skin General skin exam: no rashes or lesions noted Neuro General: patient oriented x3 Gait exam (Neuro): Normal gait present Extrem General: Yes normal to inspection, Yes full ROM and No edema Psych Affect: normal affect Attitude: cooperative Insight: Good insight present (Psych) Judgement: Good judgement present (Psych) Results AMB Urinalysis, Automated UA Leukoctes 3 Alysa/uL Last Edit by Jean Pierre Negrete Jair on 03/18/25 11:07 UA Nitrite Positive Last Edit by Jean Pierre Negrete [facility] on 03/18/25 11:07 UA Urobilinogen 0 mg/dL Last Edit by Jean Pierre Negrete [facility] on 03/18/25 11:07 UA Protein 2 mg/dL Last Edit by Jean Pierre Negrete [facility] on 03/18/25 11:07 UA pH 6.0 Last Edit by Jean Pierre Negrete [facility] on 03/18/25 11:07 UA Blood 3 Wang/uL Last Edit by Jean Pierre Negrete [facility] on 03/18/25 11:07 UA Specific [place] 1.025 Last Edit by Jean Pierre Negrete [facility] on 03/18/25 11:07 UA Ketone Negative Last Edit by Jean Pierre Negrete [facility] on 03/18/25 11:07 UA Bilirubin 0 mg/dL Last Edit by Jean Pierre Negrete [facility] on 03/18/25 11:07 UA Glucose 0 mg/dL Last Edit by Jean Pierre Negrete [facility] on 03/18/25 11:07 Results Reviewed Results Reviewed: Laboratory Last Values Urine pH (Auto) 6.0 03/18/25 10:48 Specific [place] (Auto) 1.025 03/18/25 10:48 Urine Protein (Auto) 2 mg/dL H* 03/18/25 10:48 Glucose (UA)(Auto) 0 mg/dL 03/18/25 10:48 Urine Ketones (Auto) Negative 03/18/25 10:48 Urine Blood (Auto) 3 Wang/uL H* 03/18/25 10:48 Urine Nitrite (Auto) Positive 03/18/25 10:48 Urine Bilirubin (Auto) 0 mg/dL 03/18/25 10:48 Urine Urobilinogen (Auto) 0 mg/dL 03/18/25 10:48 Leukocyte Esterase (Auto) 3 Alysa/uL H* 03/18/25 10:48 Coding Level of Care Code Est Pt Level 3 (87724) Diagnoses UTI (urinary tract infection) N39.0 Bilateral hand numbness R20.0 Assessment & Plan Assessment & Plan (1) UTI (urinary tract infection): Code(s): N39.0 - Urinary tract infection, site not specified Category: Medical Plan: The patient presents with a three-day history of dysuria, and urinalysis confirms a urinary tract infection. An antibiotic, Macrobid, will be prescribed, to be taken twice a day for five days with food. The patient was advised that if symptoms do not improve within one to two days, to notify the office. (2) Bilateral hand numbness: Code(s): R20.0 - Anesthesia of skin Category: Medical Plan: The patient reports new-onset numbness and tingling in both hands for the past one to two months. To determine the etiology, whether from the neck, elbows, or wrists, a nerve conduction study is recommended. An order for the nerve study test will be placed, and the patient will be contacted for scheduling. Plan This note was constructed using voice recognition software. While every effort has been made to ensure accuracy and trim setter helper, still areas may have been included sometimes these areas may affect the content or meeting of the given symptoms. Total time spent caring for the patient today was 15 minutes. This includes time spent before the visit reviewing the chart, time spent during the visit, and time spent after the visit and documentation. Patient was informed and verbally consented to the use of an ambient scribe for clinic note documentation during this visit. Orders: Orders NE electromyogram (EMG) Today R20.0 - Anesthesia of skin AMB Urinalysis Automated Today Z13.9 - Encounter for screening, unspecified NE nerve conduction velocity Today R20.0 - Anesthesia of skin Medications: New nitrofurantoin monohyd/m-cryst 100 mg must administer with a meal/food 100 mg PO Q12H 10 caps 0RF 5 days
[2025-03-18 10:49] VITALS: BP 150/90; PULSE 109; TEMP 36.1; O2SAT 95; BMI 38.9
[2025-03-18 11:17] VITALS: BP 148/78
== END 2025-03-18 11:21 | disposition home or self-care (01) ==
LOC: HO.HMCH 10:42
PROVIDERS: PCP Internal Medicine
DX: N39.0 Urinary tract infection, site not specified (principal); R20.0 Anesthesia of skin; Z13.9 Encounter for screening, unspecified